=== PATIENT | female | born 1930 | race Caucasian/White ===

== ENCOUNTER 2016-09-27 10:19 | Emergency (ER) ==
[2016-09-27 10:23] VITALS: BP 138/69; TEMP 99.5; BMI 25.7
[2016-09-27 10:59] LABS: BASOPHILS # (AUTO) 0.1 K/uL (0-0.2); BASOPHILS % (AUTO) 0.4 % (0.0-3.0); EOSINOPHILS % (AUTO) 0.3 % (0.0-7.0); HEMATOCRIT 31.7 % (37.0-47.0); IMMATURE GRANULOCYTE % (AUTO) 0.4 % (0.0-5.0); LYMPHOCYTES # (AUTO) 0.8 K/uL (0.60-3.4); LYMPHOCYTES % (AUTO) 6.7 (10.0-50.0); MEAN CORPUSCULAR HGB CONC 31.5 (31.8-35.4); MEAN CORPUSCULAR VOLUME 85.7 fl (81.0-99.0); MONOCYTES # (AUTO) 1.1 K/uL (0.4-2.0); MONOCYTES % (AUTO) 9.9 (0-10); NEUTROPHILS # (AUTO) 9.4 K/ul (2.0-6.9); NEUTROPHILS % (AUTO) 82.3; PLATELET COUNT 228 10^3/uL (140-440); WHITE BLOOD COUNT 11.45 K/ul (4.6-10.2)
[2016-09-27 11:13] LABS: PARTIAL THROMBOPLASTIN TIME 27.9 SEC (23.9-40.0)
[2016-09-27 11:16] LABS: ALBUMIN 3.4 g/dL (3.4-5.0); ALBUMIN/GLOBULIN RATIO 0.77; ANION GAP 16.5; BILIRUBIN,TOTAL 0.53 mg/dL (0.00-1.20); CALCIUM 9.5 mg/dL (8.2-10.2); CREATININE 1.2 mg/dL (0.60-1.30); POTASSIUM 3.5 mmol/L (3.5-5.10); TOTAL PROTEIN 7.8 g/dL (5.8-8.1)
--- NOTE | 2016-09-27 12:22 | ED.PDOC ---
General ED Provider: Dr. JOYCELYN TAYLOR Chief Complaint: Nosebleed Stated Complaint: nosebleed Time Seen by Physician: 10:20 Mode of Arrival: Walk-In Information Source: Patient, Family Exam Limitations: No limitations Primary Care Provider: PASHA DOBSON Nursing and Triage Documentation Reviewed and Agree: Yes EENT Complaint Exam - Nasal Complaint/Exam Onset/Duration: epistaxis tody Symptoms Are: Resolved Initial Severity: Mild Current Severity: None Location: Right Character: Light bleeding Aggravating: Reports: None Alleviating: Reports: None Associated Signs and Symptoms: Denies: Nasal congestion, Bruising, Hematuria, Hematochezia, Sinus pain, Nasal discharge, Foreign body, Abnormal coags Nasal Surgical History: Reports: None Bleeding Present At: Right nostril Foreign Body Present: No Septal Hematoma: No Differential Diagnoses: Coagulopathy Review of Systems - Review Of Systems Constitutional: Reports: No symptoms Eyes: Reports: No symptoms Ears, Nose, Mouth, Throat: Reports: Epistaxis Respiratory: Reports: No symptoms Cardiac: Reports: No symptoms GI: Reports: No symptoms : Reports: No symptoms Musculoskeletal: Reports: No symptoms Skin: Reports: No symptoms Neurological: Reports: No symptoms Endocrine: Reports: No symptoms Hematologic/Lymphatic: Reports: No symptoms All Other Systems: Reviewed and Negative Past Medical History - Past Medical History Previously Healthy: No Endocrine: Reports: DM 2 Cardiovascular: Reports: Hypertension Respiratory: Reports: None Hematological: Reports: None Gastrointestinal: Reports: None Genitourinary: Reports: None Neuro/Psych: Reports: None Musculoskeletal: Reports: None Cancer: Reports: None Last Menstrual Period: n/a - Surgical History General Surgical History: Reports: Unknown - Family History Family History: Reports: Unknown - Social History Smoking Status: Never smoker Hx Substance Use: No Alcohol Screening: None Physical Exam - Physical Exam Appearance: Well-appearing, No pain distress, Well-nourished Eyes: BRIAN, EOMI, Conjunctiva clear ENT: Ears normal, Nose normal, Oropharynx normal Respiratory: Airway patent, Breath sounds clear, Breath sounds equal, Respirations nonlabored Cardiovascular: RRR, Pulses normal, No rub, No murmur GI/: Soft, Nontender, No masses, Bowel sounds normal, No Organomegaly Musculoskeletal: Normal strength, ROM intact, No edema, No calf tenderness Skin: Warm, Dry, Normal color Neurological: Sensation intact, Motor intact, Reflexes intact, Cranial nerves intact, Alert, Oriented Psychiatric: Affect appropriate, Mood appropriate Interpretation - Data Designer Rate: Normal Rhythm: Sinus Ectopy: None - EKG Interpretation Rate: Normal Rhythm: Sinus Ectopy: None (1st degree block) Critical Care Note - Critical Care Note Total Time (mins): 0 Course - Course Hematology/Chemistry: 09/27/16 10:47 09/27/16 10:47 Orders, Labs, Meds: Lab Review 09/27/16 10:47 WBC 11.45 H RBC 3.70 L Hgb 10.0 L Hct 31.7 L MCV 85.7 MCH 27.0 MCHC 31.5 L RDW Coeff of Fauzia 15.7 H Plt Count 228 Immature Gran % (Auto) 0.4 Neut % (Auto) 82.3 Lymph % (Auto) 6.7 L [place] % (Auto) 9.9 Eos % (Auto) 0.3 Baso % (Auto) 0.4 Immature Gran # (Auto) 0.1 Neut # 9.4 H Lymph # 0.8 [place] # 1.1 Eos # 0.0 Baso # 0.1 PT 11.0 INR 1.07 APTT 27.9 Sodium 135 L Potassium 3.5 Chloride 99 Carbon Dioxide 23 Anion Gap 16.5 BUN 12 Creatinine 1.20 Estimated GFR (MDRD) 42.00 BUN/Creatinine Ratio 10.00 Glucose 246 H Calcium 9.5 Total Bilirubin 0.53 AST 17 ALT 11 L Alkaline Phosphatase 82 Total Protein 7.8 Albumin 3.4 Globulin 4.4 Albumin/Globulin Ratio 0.77 Orders Category Date Time Status EKG-(ED ONLY) Stat CARDIO 09/27/16 10:34 Completed CBC W/ AUTO DIFF Stat LAB 09/27/16 10:47 Completed COMPREHENSIVE METABOLIC PANEL Stat LAB 09/27/16 10:47 Completed PARTIAL THROMBOPLASTIN TIME Stat LAB 09/27/16 10:47 Completed PT WITH INR Stat LAB 09/27/16 10:47 Completed Vital Signs: Temp Pulse Resp BP Pulse Ox 09/27/16 10:19 99.5 F 90 20 138/69 96 Departure - Departure Time of Disposition: 12:22 (while in the emergency dept no nosebleeds were noted ) Disposition: HOME SELF-CARE Discharge Problem: Epistaxis Uncontrolled diabetes mellitus Qualifiers: Diabetes mellitus type: other specified (including LORNE) Anemia Qualifiers: Anemia type: unspecified type Qualifier Code: (D64.9) Anemia, unspecified Instructions: Nosebleed (ED), Anemia (ED) Condition: Good Pt referred to PMD for follow-up: No Additional Instructions: Please call your Family Physician as soon as possible to schedule a follow-up appointment. your blood sugar is not well controlled please see your doctor as soon as possible Allergies/Adverse Reactions: Allergies codeine Adverse Reaction (Verified 09/27/16 10:27) Home Medications: Ambulatory Orders Amlodipine Besylate [Norvasc] 2.5 mg PO DAILY 10/24/13 Donepezil HCl [Aricept] 5 mg PO DAILY 10/24/13 Levetiracetam [Keppra] 500 mg PO BID 10/24/13 Quetiapine Fumarate 25 mg PO BEDTIME 04/05/15 Sitagliptin Phosphate [Januvia] 50 mg PO DAILY 04/05/15 Atorvastatin Calcium 40 mg PO BEDTIME 09/27/16 Captopril 6.25 mg PO TID 09/27/16 Docusate Sodium [Colace] 100 mg PO BID 09/27/16 Hydrocodone Bit/Acetaminophen [[place] 7.5-325] 1 each PO Q6HR 09/27/16 Memantine HCl [Namenda Xr] 28 mg PO DAILY 09/27/16 Metoprolol Tartrate [Lopressor] 12.5 mg PO DAILY 09/27/16 Mirtazapine [Remeron] 30 mg PO BEDTIME 09/27/16 Nitroglycerin [Nitrostat] 0.4 mg SL Q5MIN X 3 DOSES PRN 09/27/16 Ticagrelor [Brilinta] 90 mg PO BID 09/27/16 Tramadol HCl [Ultram] 50 mg PO TID 09/27/16
== END 2016-09-27 12:43 | disposition home or self-care (01) ==
LOC: ED 10:19
DX: R04.0 Epistaxis (principal); D64.9 Anemia, unspecified; E11.65 Type 2 diabetes mellitus with hyperglycemia; I10 Essential (primary) hypertension; Z79.899 Other long term (current) drug therapy
CPT/HCPCS: 36415; 80053; 85025; 85610; 85730; 93005; 93010; 99283

== ENCOUNTER 2016-12-26 16:53 | Emergency (ER) ==
[2016-12-26 17:05] VITALS: BP 162/96; BMI 22.3
--- NOTE | 2016-12-26 17:22 | ED.PDOC ---
General ED Provider: Dr. CARLEE JEONG Chief Complaint: Extremity Pain/Injury Stated Complaint: Woke up AM tightness in feet, legs. Headache, blurred vision , heaviness in chest now. Time Seen by Physician: 17:25 Mode of Arrival: Walk-In Information Source: Patient, Family Exam Limitations: Dementia Primary Care Provider: PASHA DOBSON Nursing and Triage Documentation Reviewed and Agree: Yes Review of Systems - Review Of Systems Constitutional: Reports: Chills, Fever, Malaise Eyes: Reports: Blurred vision Ears, Nose, Mouth, Throat: Reports: No symptoms Respiratory: Reports: No symptoms Musculoskeletal: Reports: Muscle pain (lower extremities) Neurological: Reports: Anxiety, Headache, Numbness All Other Systems: Reviewed and Negative Past Medical History - Past Medical History Previously Healthy: No Endocrine: Reports: DM 2 Cardiovascular: Reports: Hypertension Respiratory: Reports: None Hematological: Reports: None Gastrointestinal: Reports: None Genitourinary: Reports: None Neuro/Psych: Reports: None Musculoskeletal: Reports: None Cancer: Reports: None Last Menstrual Period: 1976 - Surgical History General Surgical History: Reports: Unknown - Family History Family History: Reports: Unknown - Social History Smoking Status: Never smoker Hx Substance Use: No Alcohol Screening: None - Immunizations Tetanus Shot up to Date: Yes Physical Exam - Physical Exam Appearance: Well-appearing Eyes: BRIAN, EOMI, Conjunctiva clear ENT: Ears normal, Nose normal Neck: Supple Respiratory: Airway patent, Breath sounds clear, Breath sounds equal Cardiovascular: RRR, Pulses normal GI/: Soft, Nontender, No masses, Bowel sounds normal Musculoskeletal: Normal strength, ROM intact, No edema Skin: Warm, Dry, Normal color Neurological: Sensation intact, Motor intact Interpretation - Radiology Interpretation Radiology Interpretation By: Radiologist Radiology Results: Negative Exam Interpreted: CT Scan (No intracraneal bleed; no mass effect) - EKG Interpretation Time of EKG #1: 17:40 Rate: Normal Rhythm: Sinus Ectopy: None Interpretation: No apparent acute changes Critical Care Note - Critical Care Note Total Time (mins): 20 Course - Course Hematology/Chemistry: 12/26/16 17:40 12/26/16 17:40 Orders, Labs, Meds: Lab Review 12/26/16 17:40 WBC 7.98 RBC 3.54 L Hgb 9.9 L Hct 31.3 L MCV 88.4 MCH 28.0 MCHC 31.6 L RDW Coeff of Fauzia 15.8 H Plt Count 257 Immature Gran % (Auto) 0.5 Neut % (Auto) 67.9 Lymph % (Auto) 19.3 [place] % (Auto) 8.5 Eos % (Auto) 2.9 Baso % (Auto) 0.9 Immature Gran # (Auto) 0.0 Neut # 5.4 Lymph # 1.5 [place] # 0.7 Eos # 0.2 Baso # 0.1 Sodium 137 Potassium 4.2 Chloride 104 Carbon Dioxide 21 L Anion Gap 16.2 BUN 20 H Creatinine 1.61 H Estimated GFR (MDRD) 30.00 BUN/Creatinine Ratio 12.42 Glucose 159 H Calcium 9.6 Total Bilirubin 0.36 AST 19 ALT 12 Alkaline Phosphatase 64 Troponin I < 0.0100 Total Protein 7.7 Albumin 3.5 Globulin 4.2 Albumin/Globulin Ratio 0.83 Orders Category Date Time Status EKG-(IP & OP ONLY) Stat CARDIO 12/26/16 17:32 Completed CBC W/ AUTO DIFF Stat LAB 12/26/16 17:40 Completed CMP [COMPREHENSIVE METABOLIC PANEL] Stat LAB 12/26/16 17:40 Completed TROPONIN I Stat LAB 12/26/16 17:[address] HEAD W/O CONTRAST Stat RADS 12/26/16 17:58 Completed Vital Signs: Temp Pulse Resp BP Pulse Ox 12/26/16 18:58 98.3 F 12/26/16 16:55 98.7 F 71 20 162/96 H 94 L Departure - Departure Time of Disposition: 19:10 Disposition: HOME SELF-CARE Discharge Problem: Viral syndrome Instructions: Viral Pneumonia (ED), Viral Syndrome (ED) Condition: Stable Pt referred to PMD for follow-up: Yes (Call for appointment) Additional Instructions: Tylenol for discomfort or fever; keep well hydrated. Return to ER if worsening or follow up with primary care. Allergies/Adverse Reactions: Allergies codeine Adverse Reaction (Verified 09/27/16 10:27) Home Medications: Ambulatory Orders Amlodipine Besylate [Norvasc] 2.5 mg PO DAILY 10/24/13 Levetiracetam [Keppra] 500 mg PO BID 10/24/13 Quetiapine Fumarate 25 mg PO BEDTIME 04/05/15 Sitagliptin Phosphate [Januvia] 50 mg PO DAILY 04/05/15 Atorvastatin Calcium 40 mg PO BEDTIME 09/27/16 Captopril 6.25 mg PO TID 09/27/16 Docusate Sodium [Colace] 100 mg PO BID 09/27/16 Hydrocodone Bit/Acetaminophen [[place] 7.5-325] 1 each PO Q6HR 09/27/16 Memantine HCl [Namenda Xr] 28 mg PO DAILY 09/27/16 Metoprolol Tartrate [Lopressor] 12.5 mg PO DAILY 09/27/16 Mirtazapine [Remeron] 30 mg PO BEDTIME 09/27/16 Nitroglycerin [Nitrostat] 0.4 mg SL Q5MIN X 3 DOSES PRN 09/27/16 Ticagrelor [Brilinta] 90 mg PO BID 09/27/16 Tramadol HCl [Ultram] 50 mg PO TID 09/27/16 Transfer Form Completed: Yes Disposition Discussed With: Family
[2016-12-26 17:43] LABS: BASOPHILS # (AUTO) 0.1 K/uL (0-0.2); BASOPHILS % (AUTO) 0.9 % (0.0-3.0); EOSINOPHILS # (AUTO) 0.2 K/ul (0.0-0.7); EOSINOPHILS % (AUTO) 2.9 % (0.0-7.0); HEMATOCRIT 31.3 % (37.0-47.0); HEMOGLOBIN 9.9 g/dl (12.0-16.0); IMMATURE GRANULOCYTE % (AUTO) 0.5 % (0.0-5.0); LYMPHOCYTES # (AUTO) 1.5 K/uL (0.60-3.4); LYMPHOCYTES % (AUTO) 19.3 (10.0-50.0); MEAN CORPUSCULAR HGB CONC 31.6 (31.8-35.4); MEAN CORPUSCULAR VOLUME 88.4 fl (81.0-99.0); MONOCYTES # (AUTO) 0.7 K/uL (0.4-2.0); MONOCYTES % (AUTO) 8.5 (0-10); NEUTROPHILS # (AUTO) 5.4 K/ul (2.0-6.9); NEUTROPHILS % (AUTO) 67.9; PLATELET COUNT 257 10^3/uL (140-440); RED BLOOD COUNT 3.54 10^6/ul (4.20-5.40); WHITE BLOOD COUNT 7.98 K/ul (4.6-10.2)
[2016-12-26 18:09] LABS: ALANINE AMINOTRANSFERASE 12 U/L (12-78); ALBUMIN 3.5 g/dL (3.4-5.0); ALBUMIN/GLOBULIN RATIO 0.83; ALKALINE PHOSPHATASE 64 U/L (53-141); ANION GAP 16.2; ASPARTATE AMINO TRANSFERASE 19 U/L (15-37); BILIRUBIN,TOTAL 0.36 mg/dL (0.00-1.20); BLOOD UREA NITROGEN 20 mg/dL (7-18); BUN/CREATININE RATIO 12.42; CALCIUM 9.6 mg/dL (8.2-10.2); CARBON DIOXIDE 21 mmol/L (23-31); CHLORIDE 104 mmol/L (98-107); CREATININE 1.61 mg/dL (0.60-1.30); GLUCOSE 159 mg/dL (82-115); POTASSIUM 4.2 mmol/L (3.5-5.10); SODIUM 137 mmol/L (136-145); TOTAL PROTEIN 7.7 g/dL (5.8-8.1)
--- NOTE | 2016-12-26 18:33 | CT ---
EXAM: CT scan of head without contrast. HISTORY: Headache, blurred vision2 COMPARISON: None. TECHNIQUE: Axial scans acquired at 5 mm slice thicknesses. FINDINGS: There is no intra or extra-axial hemorrhage seen. No mass or shift of midline structures is seen. There is some cortical atrophy involving the frontal and parietal lobes. There is decrea sed attenuation seen in the periventricular matter consistent with chronic microvascular ischemic ch anges. Left basal ganglia calcification small 0.3 cm area decreased density left external capsule pr obable old infarct. No acute large vessel cerebrovascular accident is seen. Ventricles appear esperanza l considering degree of atrophy. There are no air-fluid levels visualized sinuses and no opacificat ion mastoid air cells is seen. IMPRESSION: 1. No acute intracranial finding is seen. 2. No intracranial hemorrhage or large vessel cerebrovascular accident identified. Vertebral and ca vernous internal carotid atherosclerosis 3. Age appropriate cortical atrophy is seen as well as some chronic white matter ischemic changes.
[2016-12-26 18:58] VITALS: TEMP 98.3
== END 2016-12-26 19:23 | disposition home or self-care (01) ==
LOC: ED 16:53
DX: B34.9 Viral infection, unspecified (principal); E11.9 Type 2 diabetes mellitus without complications; I10 Essential (primary) hypertension; Z79.899 Other long term (current) drug therapy
CPT/HCPCS: 36415; 80053; 84484; 85025; 93005; 93010; 99283

== ENCOUNTER 2017-03-13 16:01 | Outpatient (CLI) ==
[2017-03-13 16:15] LABS: BILIRUBIN,URINE Negative (NEGATIVE); KETONES,URINE Negative (NEGATIVE); LEUKOCYTE ESTERASE ,URINE Trace (NEGATIVE); NITRITE,URINE Negative (NEGATIVE); PROTEIN,URINE Negative (NEGATIVE); URINE, BLOOD Negative (NEGATIVE)
[2017-03-13 16:22] LABS: ADD URINE MICROSCOPIC YES
== END 2017-03-13 16:02 | disposition home or self-care (01) ==
LOC: NONPT 16:01
PROVIDERS: ATTEND Family Medicine
DX: N39.0 Urinary tract infection, site not specified (principal); Z16.12 Extended spectrum beta lactamase (ESBL) resistance
CPT/HCPCS: 81001; 87086

== ENCOUNTER 2017-11-05 12:25 | Outpatient (CLI) | payer OTHER | END 2017-11-05 12:26 | disposition short-term general hospital (02) | LOC: AMBL 12:25 | PROVIDERS: ATTEND Internal Medicine | DX: S09.90XA Unspecified injury of head, initial encounter (principal); M54.2 Cervicalgia; R04.0 Epistaxis; M25.511 Pain in right shoulder; M25.512 Pain in left shoulder; I10 Essential (primary) hypertension; F03.90 Unspecified dementia, unspecified severity, without behavioral disturbance, psychotic disturbance, mood disturbance, and anxiety; W19.XXXA Unspecified fall, initial encounter; Y92.838 Other recreation area as the place of occurrence of the external cause ==

== ENCOUNTER 2018-01-01 12:34 | Outpatient (CLI) ==
--- NOTE | 2018-01-01 13:36 | DI ---
EXAM: Four views of the bilateral sternoclavicular joints. History: Bony mass of the clavicles. Comparison: Chest radiograph 11/11/2013 Findings: Atherosclerotic vascular calcifications. Left lower lobe atelectasis or infiltrate. No a cute fracture or dislocation. Osteopenia. Moderate degenerative changes of bilateral glenohumeral dayanara ints with prominent osteophytes. Bilateral AC joints are intact. No suspicious osseous lesions. The bilateral sternoclavicular joints are grossly unremarkable but evaluation is difficult due to overla pping structures. Impression: 1. No acute osseous abnormality. 2. Intact bilateral AC joints. 3. Moderate arthritis of bilateral glenohumeral joints. 4. Left lower lobe subsegmental atelectasis or pneumonia. 5. The bilateral sternoclavicular joints are grossly unremarkable. If symptoms persist, recommend c orrelation with CT.
== END 2018-01-01 12:35 | disposition home or self-care (01) ==
LOC: RAD 12:34
PROVIDERS: ATTEND Family Medicine
DX: M89.9 Disorder of bone, unspecified (principal)

== ENCOUNTER 2018-01-29 12:46 | Emergency (ER) | payer OTHER ==
[2018-01-29 13:00] VITALS: BP 171/81; TEMP 98.6; BMI 25.0
--- NOTE | 2018-01-29 14:37 | ED.PDOC ---
General ED Provider: Dr. PASHA DICKINSON Chief Complaint: Fall Stated Complaint: Daughter states her mother lives with her and fell in the bedroom, against her bed/dresser sustained injury to her lt lat chest and lt breast region, lt hand/. As well states she has been dyspneic howerver denies any symptoms at present. Time Seen by Physician: 14:00 Mode of Arrival: Walk-In Information Source: Patient, Family Primary Care Provider: PASHA DOBSON Nursing and Triage Documentation Reviewed and Agree: Yes Does patient meet sepsis criteria?: No System Inflammatory Response Syndrome: Not Applicable Sepsis Protocol: For patient's 13 years and over: Temp is 96.8 and below OR 101 and greater Pulse >90 BPM Resp >20/minute Acutely Altered Mental Status Are patient's symptoms suggestive of a new infection, such as: -Pneumonia -Skin, Soft Tissue -Endocarditis -UTI -Bone, Joint Infection -Implantable Device -Acute Abdominal Infection -Wound Infection -Meningitis -Blood Stream Catheter Infection -Unknown Review of Systems - Review Of Systems Constitutional: Reports: No symptoms, Malaise, Weakness Eyes: Reports: No symptoms Ears, Nose, Mouth, Throat: Reports: No symptoms Respiratory: Reports: No symptoms Cardiac: Reports: No symptoms GI: Reports: No symptoms : Reports: No symptoms Musculoskeletal: Reports: Back pain Skin: Reports: No symptoms Neurological: Reports: No symptoms, Other (memory loss) Endocrine: Reports: No symptoms Hematologic/Lymphatic: Reports: No symptoms All Other Systems: Reviewed and Negative Past Medical History - Past Medical History Previously Healthy: No Endocrine: Reports: DM 2 Cardiovascular: Reports: Hypertension Respiratory: Reports: None Hematological: Reports: None Gastrointestinal: Reports: None Genitourinary: Reports: None Neuro/Psych: Reports: None Musculoskeletal: Reports: None Cancer: Reports: None Last Menstrual Period: unknown - Surgical History General Surgical History: Reports: Unknown - Family History Family History: Reports: Unknown - Social History Smoking Status: Never smoker Hx Substance Use: No Alcohol Screening: None Physical Exam - Physical Exam Appearance: Well-appearing, No pain distress Ill-appearing: None Pain Distress: None Eyes: BRIAN, EOMI, Conjunctiva clear ENT: Ears normal, Nose normal, Oropharynx normal Neck: Supple Respiratory: Airway patent, Breath sounds clear, Breath sounds equal, Respirations nonlabored Cardiovascular: RRR, Pulses normal, No rub, No murmur GI/: Soft, Nontender, No masses, Bowel sounds normal, No Organomegaly Musculoskeletal: Normal strength (tenderness lt lat chest wall.no crepitance) Interpretation - Radiology Interpretation Radiology Interpretation By: Radiologist Radiology Results: No acute changes Exam Interpreted: Other (chest wall, rib series) Critical Care Note - Critical Care Note Total Time (mins): 0 Course - Course Hematology/Chemistry: 01/29/18 14:55 01/29/18 14:55 Orders, Labs, Meds: Lab Review 01/29/18 01/29/18 14:55 14:55 WBC 9.12 RBC 3.66 L Hgb 11.1 L Hct 33.1 L MCV 90.4 MCH 30.3 MCHC 33.5 RDW Coeff of Fauzia 13.1 Plt Count 241 Immature Gran % (Auto) 0.3 Neut % (Auto) 68.2 Lymph % (Auto) 17.0 [place] % (Auto) 9.1 Eos % (Auto) 4.6 Baso % (Auto) 0.8 Immature Gran # (Auto) 0.0 Neut # (Auto) 6.2 Lymph # (Auto) 1.6 [place] # (Auto) 0.8 Eos # (Auto) 0.4 Baso # (Auto) 0.1 Sodium 129 L Potassium 4.4 Chloride 94 L Carbon Dioxide 26 Anion Gap 13.4 BUN 15 Creatinine 1.61 H Estimated GFR (MDRD) 30.00 BUN/Creatinine Ratio 9.31 Glucose 166 H Calcium 9.5 Total Bilirubin 0.3 AST 14 L ALT 9 L Alkaline Phosphatase 57 Total Protein 7.9 Albumin 3.6 Globulin 4.3 Albumin/Globulin Ratio 0.84 Orders Category Date Time Status CBC W/ AUTO DIFF Stat LAB 01/29/18 14:55 Completed CMP [COMPREHENSIVE METABOLIC PANEL] Stat LAB 01/29/18 14:55 Completed UA [URINALYSIS C & S IF INDICATED] Stat LAB 01/29/18 14:42 Uncollected CHEST, 2 VIEWS PA & LAT Stat RADS 01/29/18 14:38 Completed HAND, LEFT 3 VIEWS Stat RADS 01/29/18 14:40 Completed RIBS, BILATERAL MIN 3V Stat RADS 01/29/18 14:38 Completed Vital Signs: Temp Pulse Resp BP Pulse Ox 01/29/18 12:47 98.6 F 88 20 171/81 H 94 L Departure - Departure Time of Disposition: 16:20 Disposition: HOME SELF-CARE Discharge Problem: Chest wall contusion, Hyponatremia, Dementia Instructions: Chest Pain (ED), Hyponatremia (ED) Condition: Good Pt referred to PMD for follow-up: Yes IPMP verified?: Yes Additional Instructions: routine analgesics for pain control as needed. Avoid excess water ingestion Allergies/Adverse Reactions: Allergies codeine Adverse Reaction (Verified 01/29/18 13:00) Home Medications: Ambulatory Orders Amlodipine Besylate [Norvasc] 2.5 mg PO DAILY 10/24/13 Levetiracetam [Keppra] 500 mg PO BID 10/24/13 Sitagliptin Phosphate [Januvia] 50 mg PO DAILY 04/05/15 Atorvastatin Calcium 40 mg PO BEDTIME 09/27/16 Metoprolol Tartrate [Lopressor] 12.5 mg PO DAILY 09/27/16 Mirtazapine [Remeron] 30 mg PO BEDTIME 09/27/16 Nitroglycerin [Nitrostat] 0.4 mg SL Q5MIN X 3 DOSES PRN 09/27/16 Furosemide 60 mg PO DAILY 01/29/18 Meclizine HCl 12.5 mg PO TID PRN 01/29/18 Montelukast Sodium [Singulair] 10 mg PO DAILY 01/29/18 Polyethylene Glycol 3350 [Miralax] 17 gm PO DAILY PRN 01/29/18 Pramipexole Di-HCl [Mirapex] 0.5 mg PO BEDTIME 01/29/18 Quetiapine Fumarate [Seroquel] 25 mg PO BEDTIME 01/29/18 Disposition Discussed With: Patient, Family
--- NOTE | 2018-01-29 15:42 | DI ---
EXAM: PA and lateral views of the chest HISTORY: Fall COMPARISON: Chest x-ray 11/11/2013 FINDINGS: The cardiomediastinal silhouette is unchanged. Lungs are hyperinflated. There are mild i nterstitial opacities throughout both lungs. There is no pneumothorax or pleural effusion. There is no consolidation, nodule or mass. The osseous structures demonstrates degenerative disease of the s pine. IMPRESSION: 1. No acute consolidation or cardiopulmonary process. 2. Lungs are hyperinflated with interstitial opacities consistent with chronic obstructive pulmonary disease versus interstitial lung disease.
--- NOTE | 2018-01-29 15:42 | DI ---
Exam: Four views of the bilateral ribs. Comparison: Chest x-ray performed 01/29. Reason for exam: Fall. FINDINGS: Parenchymal changes are seen consistent with chronic lung disease. There is blunting of t he left costophrenic angle. Degenerative disease is seen in both shoulders and the thoracic spine. No displaced fractures are seen. Impression: No displaced rib fractures are seen. Blunting of the left costophrenic angle with moderate to marked degenerative disease
--- NOTE | 2018-01-29 15:46 | DI ---
Exam: Three views of the left hand. Comparison: None available. Reason for exam: Injury and pain. FINDINGS: No obvious fracture. Moderate to marked degenerative disease is seen throughout the left w rist and left hand with joint space loss and osteophyte formation. There is a moderate amount of sof t tissue swelling seen adjacent to the joint spaces. Impression: 1. No obvious fracture is seen in the left hand. 2. Moderate to severe degenerative disease is seen throughout the wrist and phalanges.
== END 2018-01-29 16:41 | disposition home or self-care (01) ==
LOC: ED 12:46
DX: S20.212A Contusion of left front wall of thorax, initial encounter (principal); S69.92XA Unspecified injury of left wrist, hand and finger(s), initial encounter; E87.1 Hypo-osmolality and hyponatremia; F03.90 Unspecified dementia, unspecified severity, without behavioral disturbance, psychotic disturbance, mood disturbance, and anxiety; W19.XXXA Unspecified fall, initial encounter; Y92.003 Bedroom of unspecified non-institutional (private) residence as the place of occurrence of the external cause
CPT/HCPCS: 36415; 80053; 85025; 99283

== ENCOUNTER 2018-03-19 12:30 | Outpatient (CLI) | payer OTHER ==
--- NOTE | 2018-03-19 13:07 | DI ---
EXAM: Two views of the chest. History: Cough and chest trauma. Comparison: Chest radiograph 01/29/2018 Findings: Heart is mildly enlarged. Diffuse bronchial wall thickening. There is a new nodular dens ity within the right lateral midlung. Left lower lobe infiltrate. Question small left pleural effus ion. No pneumothorax. No acute osseous abnormalities. Atherosclerotic vascular calcifications. Impression: 1. New nodular density within the right lateral lung. Recommend further evaluation with chest CT. 2. Mild cardiomegaly. 3. Diffuse bronchial wall thickening. 4. Probable left lower lobe infiltrate and question small left pleural effusion.
--- NOTE | 2018-03-19 13:13 | DI ---
EXAM: Four views of the cervical spine. History: Cervical neck trauma. Findings: Only through C5 is seen on the lateral view. Seen only on the lateral view there is a reuben ency seen traversing the odontoid. Minimal 2 mm anterolisthesis of C4 on C5. Atherosclerotic vascul ar calcifications. Prominent anterior osteophyte at C5-6 is only partially visualized. No preverte bral soft tissue swelling. Predental space is not widened. Mild to moderate disc space narrowing bu t C5-6 and C6-7 are not fully visualized. Multilevel bilateral uncovertebral and facet hypertrophy. Impression: 1. Unexpected finding: Question nondisplaced fracture of the odontoid versus pseudoarthrosis. Adam mmend further evaluation with CT cervical spine. 2. Degenerative changes.
--- NOTE | 2018-03-19 13:35 | DI ---
EXAM: Three views of the right shoulder. History: Right shoulder trauma. Findings: Osteopenia. No acute fracture or dislocation. Moderate to severe narrowing of the right glenohumeral joint with marginal sclerosis and osteophyte formation. Impression: 1. No acute osseous abnormality. 2. 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
[2018-03-19 18:40] VITALS: BMI 25.9
== END 2018-03-19 12:31 | disposition home or self-care (01) ==
LOC: RAD 12:30
PROVIDERS: ATTEND Family Medicine
DX: R05 Cough (principal); R07.9 Chest pain, unspecified; M25.511 Pain in right shoulder; M54.2 Cervicalgia; W19.XXXA Unspecified fall, initial encounter

== ENCOUNTER 2018-03-19 14:27 | Inpatient (IN) | payer OTHER ==
--- NOTE | 2018-03-19 14:45 | ED.PDOC ---
General ED Provider: Dr. PASHA DICKINSON Chief Complaint: Neck Injury Stated Complaint: Has had recent fall and underwent preliminary work up revealing questionable cervical odontoid fracture. Sent in for CT scan of Cervical spine. In additon has had cough and congestion. Chest Xray revealed LLL infiltrate and Lt Pleural effusion . New nodualr density in Rt Lung. Time Seen by Physician: 14:40 Mode of Arrival: Walk-In Information Source: Patient Exam Limitations: No limitations Primary Care Provider: PASHA DOBSON Nursing and Triage Documentation Reviewed and Agree: Yes Does patient meet sepsis criteria?: No System Inflammatory Response Syndrome: Not Applicable Sepsis Protocol: For patient's 13 years and over: Temp is 96.8 and below OR 101 and greater Pulse >90 BPM Resp >20/minute Acutely Altered Mental Status Are patient's symptoms suggestive of a new infection, such as: -Pneumonia -Skin, Soft Tissue -Endocarditis -UTI -Bone, Joint Infection -Implantable Device -Acute Abdominal Infection -Wound Infection -Meningitis -Blood Stream Catheter Infection -Unknown Musculoskeletal Complaint Exam - Neck Pain Complaint/Exam Mechanism of Injury: Reports: Trauma Symptoms Are: Still present Timing: Intermittent Episodes Lasting: Hours Initial Severity: Moderate Current Severity: Mild Location: Reports: Discrete Character: Reports: Aching Aggravating: Reports: Position Alleviating: Reports: Position Associated Signs and Symptoms: Denies: Swelling, Redness, Bruising, Fever, Nuchal rigidity, Weakness, Headache, Paresthesia Meningitis Risk Factors: Reports: None Cervical Spine Injury Risk Factors: Reports: None Related Surgical History: Reports: None Carotid Bruit Present: No Pain on Passive Flexion: No Positive Kernig's Sign: No ROM Limited In: Present: Flexion, Right, Left, Rotation Tenderness: Present: Midline Review of Systems - Review Of Systems Constitutional: Reports: No symptoms Eyes: Reports: No symptoms Ears, Nose, Mouth, Throat: Reports: No symptoms Respiratory: Reports: No symptoms, Cough, Wheezing Cardiac: Reports: No symptoms GI: Reports: No symptoms : Reports: No symptoms Musculoskeletal: Reports: No symptoms, Neck pain Skin: Reports: No symptoms Neurological: Reports: No symptoms Endocrine: Reports: No symptoms Hematologic/Lymphatic: Reports: No symptoms All Other Systems: Reviewed and Negative Past Medical History - Past Medical History Previously Healthy: No Endocrine: Reports: DM 2 Cardiovascular: Reports: Hypertension Respiratory: Reports: None Hematological: Reports: None Gastrointestinal: Reports: None Genitourinary: Reports: None Neuro/Psych: Reports: None Musculoskeletal: Reports: None Cancer: Reports: None Last Menstrual Period: N/A - Surgical History General Surgical History: Reports: Unknown - Family History Family History: Reports: Unknown - Social History Smoking Status: Never smoker Hx Substance Use: No Alcohol Screening: None Physical Exam - Physical Exam Appearance: Well-appearing, No pain distress, Thin Ill-appearing: Mild Pain Distress: None Eyes: BRIAN, EOMI, Conjunctiva clear ENT: Ears normal, Nose normal, Oropharynx normal Neck: Supple Critical Care Note - Critical Care Note Total Time (mins): 30 Course - Course Hematology/Chemistry: 03/19/18 16:04 03/19/18 16:04 Orders, Labs, Meds: Orders Category Date Time Status EKG-(ED ONLY) Stat CARDIO 03/19/18 15:34 Completed IV [ED IV/MEDIPORT/POWERPORT] .ONCE EMERGENCY 03/19/18 15:34 Active BLOOD CULTURE (ED ONLY) Stat LAB 03/19/18 16:04 Received CBC W/ AUTO DIFF Stat LAB 03/19/18 16:04 Completed CMP [COMPREHENSIVE METABOLIC PANEL] Stat LAB 03/19/18 16:04 Completed LACTIC ACID Stat LAB 03/19/18 16:04 Completed PROCALCITONIN Stat LAB 03/19/18 16:04 Completed SPUTUM CULTURE Stat LAB 03/19/18 15:34 Uncollected UA [URINALYSIS C & S IF INDICATED] Stat LAB 03/19/18 15:34 Uncollected 0.9 % Sodium Chloride [Saline Flush] MEDS 03/19/18 15:33 Active 1 syr IVF PRN PRN Sodium Chloride 0.9% [Sodium Chloride] 1,000 ml MEDS 03/19/18 15:35 Active IV 125 mls/hr CT CERVICAL SPINE W/O CONTRAST Stat RADS 03/19/18 14:44 Completed Medications Generic Name Dose Route Start Last Admin Trade Name Freq PRN Reason Stop Dose Admin Acetaminophen 650 mg 03/19/18 17:11 Tylenol PO Q4H PRN Fever >101 Albuterol/Ipratropium 1 vial 03/19/18 17:11 Duoneb NEB RTQ6H PRN Wheezing Enoxaparin Sodium 30 mg 03/19/18 17:30 Lovenox SUBCUT DAILY JO ANN Sodium Chloride 1,000 mls @ 125 mls/hr 08/16/18 15:35 03/19/18 16:02 Sodium Chloride IV 03/19/18 23:34 125 mls/hr .Q8H STA Administration Sodium Chloride 1,000 mls @ 75 mls/hr 03/19/18 17:30 Sodium Chloride IV .[id number] JO ANN Vancomycin HCl 1 gm/ Sodium 250 mls @ 125 mls/hr 03/19/18 21:00 Chloride IV Q12HR JO ANN Ondansetron HCl 4 mg 03/19/18 17:11 Zofran 4 Mg/2 Ml IVP Q6H PRN nausea and vomiting Sodium Chloride 1 syr 03/19/18 15:33 03/19/18 16:02 Saline Flush IVF 1 syr PRN PRN Administration To flush IV Discontinued Medications Generic Name Dose Route Start Last Admin Trade Name Freq PRN Reason Stop Dose Admin Ceftriaxone Sodium 1 gm/ 50 mls @ 75 mls/hr 03/19/18 16:36 03/19/18 16:51 Sodium Chloride IV 03/19/18 17:15 75 mls/hr ONCE STA Administration Vital Signs: Temp Pulse Resp BP Pulse Ox 03/19/18 14:27 98.2 F 65 20 125/77 94 L Departure - Departure Time of Disposition: 17:25 Disposition: ADMITTED INPATIENT Discharge Problem: Pneumonia Condition: Fair Pt referred to PMD for follow-up: Yes (1 week ) IPMP verified?: No Allergies/Adverse Reactions: Allergies codeine Adverse Reaction (Verified 03/19/18 14:33) memantine [From Namenda] Adverse Reaction (Verified 03/19/18 15:12) Home Medications: Ambulatory Orders Amlodipine Besylate [Norvasc] 2.5 mg PO DAILY 10/24/13 Levetiracetam [Keppra] 500 mg PO BID 10/24/13 Sitagliptin Phosphate [Januvia] 50 mg PO DAILY 04/05/15 Atorvastatin Calcium 40 mg PO BEDTIME 09/27/16 Metoprolol Tartrate [Lopressor] 12.5 mg PO DAILY 09/27/16 Mirtazapine [Remeron] 30 mg PO BEDTIME 09/27/16 Nitroglycerin [Nitrostat] 0.4 mg SL Q5MIN X 3 DOSES PRN 09/27/16 Furosemide 60 mg PO DAILY 01/29/18 Meclizine HCl 12.5 mg PO TID PRN 01/29/18 Montelukast Sodium [Singulair] 10 mg PO DAILY 01/29/18 Pramipexole Di-HCl [Mirapex] 0.5 mg PO BEDTIME 01/29/18 Quetiapine Fumarate [Seroquel] 25 mg PO BEDTIME 01/29/18 Lorazepam [Ativan] 0.5 mg PO DAILY 03/19/18 Ranolazine [Ranexa] 500 mg PO DAILY 03/19/18 Tramadol HCl [Ultram] 50 mg PO DAILY 03/19/18 Disposition Discussed With: Patient, Family
--- NOTE | 2018-03-19 15:27 | CT ---
EXAM: CT of the cervical spine without contrast History: Abnormal cervical spine radiograph, neck trauma. Comparison: Cervical spine radiograph 03/19/2018 Technique: Multiplanar CT images through the cervical spine were obtained without the administration of IV contrast Findings: The visualized upper lungs are free of consolidation. The visualized airway remains paten t. There is mucosal thickening of the sphenoid sinuses. Osteopenia. No acute fracture or subluxation of the cervical spine. No prevertebral soft tissue swe lling. Predental space is not widened. Severe disc space narrowing at C5-6. Large flowing anterior osteophytes seen within the lower cervical spine and upper thoracic spine. Moderate to severe degen erate changes of the left C1-C2 articulation. Bony spinal canal is not significantly compromised. M oderate to severe multilevel bilateral bony neural foraminal narrowing secondary to uncovertebral and facet hypertrophy. Degenerative changes of the bilateral temporal mandibular joints Impression: No acute osseous abnormality of the cervical spine. Degenerative changes.
[2018-03-19] MEDS ORDERED: SODIUM CHLORIDE 1,000 ML IV STA (15:35)
[2018-03-19] MEDS ORDERED: ROCEPHIN 1 GM in SODIUM CHLORIDE 50 ML IV STA (16:36)
[2018-03-19] MEDS ORDERED: ROCEPHIN ONE (16:40)
[2018-03-19] MEDS ORDERED: TYLENOL PO PRN (17:11)
[2018-03-19] MEDS ORDERED: DUONEB NEB PRN (17:11)
[2018-03-19] MEDS ORDERED: ZOFRAN 4 MG/2 ML IVP PRN (17:11)
[2018-03-19] MEDS ORDERED: SOLU-MEDROL 125 MG 125 MG in SODIUM CHLORIDE 50 ML IV ONE (17:21)
[2018-03-19 18:40] VITALS: BMI 25.9
[2018-03-19] MEDS ORDERED: SOLU-MEDROL 125 MG ONE (18:45)
[2018-03-19] MEDS: LOVENOX SUBCUT SCH (18:51)
[2018-03-19] MEDS ORDERED: SOLU-MEDROL 125 MG IVP STA (18:53)
[2018-03-19] MEDS ORDERED: TESSALON PERLES PO PRN (19:24)
[2018-03-19] MEDS ORDERED: ANTIVERT PO PRN (19:24)
[2018-03-19] MEDS ORDERED: MIRALAX PO PRN (19:25)
[2018-03-19] MEDS ORDERED: NITROSTAT SL PRN (19:25)
[2018-03-19] MEDS: VANCOMYCIN 1 GM in SODIUM CHLORIDE 250 ML IV SCH (20:49)
[2018-03-19] MEDS: SEROQUEL PO SCH (20:51)
[2018-03-19] MEDS: REMERON PO SCH (20:51)
[2018-03-19] MEDS: KEPPRA PO SCH (20:51)
[2018-03-19] MEDS ORDERED: PRAMIPEXOLE DI HCL 0.5 MG PO SCH (21:00)
[2018-03-20] MEDS ORDERED: NON-FORMULARY MEDICATION (Sitagliptin Phosphate [Januvia] 50 MG) PO SCH (09:00)
[2018-03-20] MEDS ORDERED: NON-FORMULARY MEDICATION (Atorvastatin Calcium [Atorvastatin Calcium] 40 MG) PO SCH (09:00)
[2018-03-20] MEDS: JANUVIA PO SCH (10:05)
[2018-03-20] MEDS: KEPPRA PO SCH ×2 (10:05→20:26)
[2018-03-20] MEDS: LIPITOR PO SCH (10:05)
[2018-03-20] MEDS: LASIX TAB PO SCH (10:07)
[2018-03-20] MEDS: NORVASC PO SCH (10:07)
[2018-03-20] MEDS: LOPRESSOR PO SCH (10:07)
[2018-03-20] MEDS: SODIUM CHLORIDE 1,000 ML IV SCH ×3 (10:07→13:13)
[2018-03-20] MEDS: RANEXA PO SCH (10:07)
[2018-03-20] MEDS: LOVENOX SUBCUT SCH (10:08)
[2018-03-20] MEDS: ULTRAM PO SCH (10:08)
[2018-03-20] MEDS: VANCOMYCIN 1 GM in SODIUM CHLORIDE 250 ML IV SCH ×2 (10:49→20:25)
[2018-03-20] MEDS: ROCEPHIN 1 GM in SODIUM CHLORIDE 50 ML IV SCH (13:13)
[2018-03-20] MEDS: HUMULIN R SUBCUT PRN (17:11)
[2018-03-20] MEDS: SEROQUEL PO SCH (20:25)
[2018-03-20] MEDS: REMERON PO SCH (20:25)
[2018-03-20] MEDS: MIRAPEX PO SCH (20:25)
[2018-03-20] MEDS ORDERED: VANCOMYCIN 500 MG in SODIUM CHLORIDE 100 ML IV SCH (21:00)
[2018-03-21] MEDS: HUMULIN R SUBCUT PRN ×3 (01:30→22:20)
[2018-03-21] MEDS: LASIX TAB PO SCH (06:24)
[2018-03-21] MEDS: RANEXA PO SCH (08:50)
[2018-03-21] MEDS: JANUVIA PO SCH (08:51)
[2018-03-21] MEDS: KEPPRA PO SCH ×2 (08:51→20:41)
[2018-03-21] MEDS: NORVASC PO SCH (08:51)
[2018-03-21] MEDS: ULTRAM PO SCH (08:51)
[2018-03-21] MEDS: LOPRESSOR PO SCH (08:51)
[2018-03-21] MEDS: LIPITOR PO SCH (08:51)
[2018-03-21] MEDS: LOVENOX SUBCUT SCH (08:52)
[2018-03-21] MEDS: ROCEPHIN 1 GM in SODIUM CHLORIDE 50 ML IV SCH (11:10)
[2018-03-21] MEDS: SODIUM CHLORIDE 1,000 ML IV SCH (13:12)
[2018-03-21] MEDS: VANCOMYCIN 1 GM in SODIUM CHLORIDE 250 ML IV SCH (20:24)
[2018-03-21] MEDS: MIRAPEX PO SCH (20:40)
[2018-03-21] MEDS: REMERON PO SCH (20:41)
[2018-03-21] MEDS: SEROQUEL PO SCH (20:41)
[2018-03-22] MEDS: LASIX TAB PO SCH (06:24)
[2018-03-22] MEDS ORDERED: VANCOMYCIN 1 GM in SODIUM CHLORIDE 250 ML IV SCH (09:00)
[2018-03-22] MEDS: LIPITOR PO SCH (09:57)
[2018-03-22] MEDS: KEPPRA PO SCH ×2 (09:57→20:37)
[2018-03-22] MEDS: JANUVIA PO SCH (09:57)
[2018-03-22] MEDS: NORVASC PO SCH (09:57)
[2018-03-22] MEDS: ROCEPHIN 1 GM in SODIUM CHLORIDE 50 ML IV SCH (09:57)
[2018-03-22] MEDS: LOPRESSOR PO SCH (09:57)
[2018-03-22] MEDS: RANEXA PO SCH (09:57)
[2018-03-22] MEDS: LOVENOX SUBCUT SCH (09:58)
[2018-03-22] MEDS: ULTRAM PO SCH (09:59)
[2018-03-22] MEDS ORDERED: K-DUR PO STA ×2 (11:59→17:41)
[2018-03-22] MEDS: HUMULIN R SUBCUT PRN ×2 (12:52→20:43)
[2018-03-22] MEDS: K-DUR PO SCH (17:25)
[2018-03-22] MEDS ORDERED: MICRO-K CAP ONE (18:01)
--- NOTE | 2018-03-22 18:47 | DI ---
EXAM: Chest two views HISTORY: Follow up pneumonia COMPARISON: 03/19/2018 TECHNIQUE: Two views of the chest were performed FINDINGS: Heart is enlarged, unchanged. Mediastinal contour unchanged. Nodular density right mid l ateral lung. No visible pneumothorax. Bibasilar infiltrates with small left pleural effusion. Diff use bronchial wall thickening. IMPRESSION: 1. Redemonstration of a nodular density right mid lateral lung. Recommend further evaluation with C T chest. 2. Bibasilar infiltrates likely represent pneumonia. Probable small left pleural effusion. 3. Diffuse bronchial wall thickening. 4. Mild cardiomegaly.
[2018-03-22] MEDS: VANCOMYCIN 1 GM in SODIUM CHLORIDE 250 ML IV SCH (20:37)
[2018-03-22] MEDS: REMERON PO SCH (20:37)
[2018-03-22] MEDS: MIRAPEX PO SCH (20:37)
[2018-03-22] MEDS: SEROQUEL PO SCH (20:38)
[2018-03-23] MEDS: LASIX TAB PO SCH (06:22)
--- NOTE | 2018-03-23 08:41 | CT ---
EXAM: CT chest without contrast. HISTORY: Persistently abnormal chest radiograph. COMPARISON: Chest radiograph earlier the same day, 03/19/2018, 01/29/2018, 11/11/2013. TECHNIQUE: Multiple axial images of the chest were obtained without intravenous contrast. Images we re reformatted in the sagittal and coronal planes. FINDINGS: Evaluation for lymphadenopathy is limited by lack of intravenous contrast. Some calcified mediastinal lymph nodes are present. Heart size is enlarged. No significant pericardial fluid iden tified. Atherosclerotic calcifications are present. 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 Small left pleural effusion and trace right pleural effusion are present. Nodular foci of consolidat ion are seen throughout both lungs, which are predominantly peripherally and greater in the left lung . No pneumothorax identified. Limited images of the upper abdomen demonstrate no acute finding. Degenerative changes seen in the s houlders and spine. Patchy sclerosis throughout multiple visualized vertebral bodies, most notably T 7 noted. No acute fracture identified. IMPRESSION: 1. Nodular foci of consolidation in both lungs, greater on the left, which could represent pneumonia . Follow-up CT in 4-6 weeks recommended for reassessment as neoplastic process not excluded. Given lack of prior CT for comparison, chronic organizing pneumonia is an additional consideration. 2. Small left and trace right pleural effusions. 3. Cardiomegaly and atherosclerosis. 4. Nonspecific sclerosis within the vertebral bodies, most notably at T7.
[2018-03-23] MEDS: LOPRESSOR PO SCH (09:45)
[2018-03-23] MEDS: ROCEPHIN 1 GM in SODIUM CHLORIDE 50 ML IV SCH (09:45)
[2018-03-23] MEDS: RANEXA PO SCH (09:46)
[2018-03-23] MEDS: NORVASC PO SCH (09:46)
[2018-03-23] MEDS: KEPPRA PO SCH ×2 (09:46→20:41)
[2018-03-23] MEDS: LIPITOR PO SCH (09:46)
[2018-03-23] MEDS: ULTRAM PO SCH (09:47)
[2018-03-23] MEDS: LOVENOX SUBCUT SCH (09:48)
[2018-03-23] MEDS: K-DUR PO SCH ×2 (09:48→18:03)
[2018-03-23] MEDS: JANUVIA PO SCH (09:49)
--- NOTE | 2018-03-23 14:32 | RS.OTINEVL ---
Subjective - Patient information Date of Evaluation: 03/23/18 Admitted From:: Emergency Dept Usual Living Arrangement: With Others Living Arrangement Comments: Pt was living with her daughter and then she was admitted to the ER. Her daughter is using a rollator walker and takes care of her. Pt uses a rollator walker herself. Pt is independent with personal hygiene. Medical History Comments:: osteoporosis, deg. changes with C1 and C2. High falls risk., Neck pain, Subjective Information/ Patient Comments:: "I am used to doing what I can do for myself." - Level of function Abilities prior to this admission: Patient was just discharged from [facility]. Pt uses a rolling walker. Current Level of Function: Partially Dependent Current Equipment Used at Home: walker Pain Assessment - Pain Pain Location Body Site: Neck Pain Aggravating Factors: ADL's, Changing Position Pain Alleviating Factors: Medication, Position Change, Sitting Interventions - Objective Patient Orientation: Person, Place, Situation Current Interventions: IV's, Oxygen Observation: Pt was CGA for transfers from EOB to toilet. Pt completed independence with sit to stand transfers. Interventions - ROM Right Upper Extremity AROM: WFL's Left Upper Extremity AROM: WFL's - Strength Right Upper Extremity Strength: Mild Weakness Left Upper Extremity Strength: Mild Weakness - Sensation Right Upper Extremity Sensation: Intact/Normal Left Upper Extremity Sensation: Intact/Normal Balance - Sitting Balance Static Sitting Balance: Fair Dynamic Sitting Balance: Fair - Standing Balance Static Standing Balance: Poor Dynamic Standing Balance: Poor - Comments Balance Assessment Comments: Pt uses a rollator to keep her balance. ADL Skills - Self Feeding Self Feeding: Independent - Grooming Grooming: CGA - Dressing Dressing UE: Min Assist Dressing LE: Min Assist - Toilet Management Toileting Management: CGA Functional Mobility - Bed Mobility Rolling R/L: CGA Scooting: CGA Supine to Sit: CGA Sit to Supine: CGA - Transfers Sit to Stand: CGA Stand to Sit: CGA Stand Pivot Transfers: CGA ISABELLE INDEX SCORE: . Additional Treatment Performed - Time with patient Length of Evaluation: 24 Total treatment time: 24 Activities Patient Interests:: Watching Television, Visiting/Socializing Patient Education Patient Education: Education of diagnosis, Home Exercise Program, Education of Plan of Care Teaching Recipient: Patient Teaching Methods: Discussion Assessment Problem List:: Decreased level of function, Requires training/education, Decreased safety/Risk of falls, Weakness, Pain limits previous level of function Rehab Potential: Good Further Therapy Indicated?: Yes Evaluation Complexity: HISTORY: Medium, EXAM OF BODY SYSTEMS: Medium, CLINICAL DECISION MAKING: Medium Short Term Goals - Goals GOAL 1: Pt to complete self care management with CGA. Goal to be met by: 03/27/18 GOAL 2: Pt to increase activity tolerance to 15 minutes. Goal to be met by: 03/27/18 GOAL 3: Pt to increase independence of sink level ADLS to CGA. Goal to be met by: 03/27/18 Snf Goals GOAL 1: Pt to complete self care management with Mod-I. Goal to be met by: 03/31/18 GOAL 2: Pt to increase activity tolerance to 20 minutes. Goal to be met by: 03/31/18 GOAL 3: Pt to increase independence of sink level ADLS to MOD-I. Goal to be met by: 03/31/18 Plan Plan of Care: Therapeutic EX, Neuromuscular Re-Educ, Therapeutic Activity, Self- Care/Home Management Duration of Treatment: 2 Weeks Anticipated Discharge Destination: Home Treatment Diagnosis (ICD 10 Codes): M62.81 Muscle weakness, Z74.01 Need for assistance with personal care. Has the Physician been added for Co-signature?: Yes
[2018-03-23] MEDS: VANCOMYCIN 1 GM in SODIUM CHLORIDE 250 ML IV SCH (20:38)
[2018-03-23] MEDS: HUMULIN R SUBCUT PRN (20:38)
[2018-03-23] MEDS: REMERON PO SCH (20:40)
[2018-03-23] MEDS: SEROQUEL PO SCH (20:41)
[2018-03-23] MEDS: MIRAPEX PO SCH (20:41)
[2018-03-24] MEDS: LASIX TAB PO SCH (05:40)
--- NOTE | 2018-03-24 08:22 | RS.PTINEVL ---
Subjective - Patient information Date of Evaluation: 03/23/18 Date of Arrival on Unit: 03/19/18 Admitted From:: Emergency Dept Diagnosis: pneumonia, recent fall Usual Living Arrangement: With Others Living Arrangement Comments: pt lives with dtr who just recently took her out of [facility] due to multiple falls and concerns about her care. pt has lived with dtr for last several years. Home Environment: House, Stairs (few), Rail Medical History: Hypertension, Diabetes, Arthritis Medical History Comments:: osteoporosis, deg. changes with C1 and C2, Neck pain LATEX ALLERGY?: No Medications: see chart Subjective Information/ Patient Comments:: pt's dtr states that she took her mom out of [facility] due to multiple falls. States pt has c/o neck pain and shld pain after recent fall. - Level of function Prior to this admission, the patient could do the following:: Partially Dependent Ambulation Abilities prior to this admission: pt amb with rollator, and required min assist with ADL's Current Level of Function: Partially Dependent Current Equipment Used at Home: walker Pain Assessement - Location cervical Description: Aching Pain Behavior: Facial Grimacing Effects of Pain: pt unable to rate pain, grimaces with cervical ROM Interventions - Objective Patient Orientation: Person, Place Current Interventions: IV's Range of Motion - ROM Right Upper Extremity AROM: WFL's Left Upper Extremity AROM: WFL's Right Lower Extremity AROM: WFL's Left Lower Extremity AROM: WFL's Comments:: pt with min c/o pain with shld ROM Muscle Strength - Muscle Strength Right Upper Extremity Strength: Mild Weakness (grossly 4-/5) Left Upper Extremity Strength: Mild Weakness (grossly 4-/5) Right Lower Extremity Strength: Mild Weakness (hip flex 4-/5, knee flex/ext 4/5 , ankle DF/PF 4/5) Left Lower Extremity Strength: Mild Weakness (hip flex 4-/5, knee flex/ext 4/5, ankle DF/PF 4/5) Sensation - Sensation Right Upper Extremity Sensation: Intact/Normal Left Upper Extremity Sensation: Intact/Normal Right Lower Extremity Sensation: Intact/Normal Left Lower Extremity Sensation: Intact/Normal Palpation Palpation Findings: Tenderness Comments:: cervical spine to palpation Balance - Sitting Balance and Reactions Static Sitting Balance: Good Dynamic Sitting Balance: Fair Sitting Equilibrium Reactions: Delayed Left, Delayed Right Sitting Protective Reactions: Delayed Left, Delayed Right - Standing Balance and Reactions Static Standing Balance: Fair Dynamic Standing Balance: Poor Standing Equilibrium Reactions: Delayed Left, Delayed Right Standing Protective Reactions: Delayed Left, Delayed Right Functional Mobility - Bed Mobility Rolling R/L: CGA Scooting: CGA Supine to Sit: Min Assist Sit to Supine: CGA - Transfers Sit to Stand: CGA Stand to Sit: CGA - Safety Awareness Safety Awareness: Fair ISABELLE INDEX SCORE: n/a Ambulation - Ambulation Assistive Device Used: Rolling Walker Orthotic/Prosthetic Device: No Distance: 100ft Assistance needed with Ambulation: CGA Gait Deviations: Forward posture, Short stride, Deviates from path Ambulation Comments: pt amb with decreased step length, flexed posture, pt requires assist to guide rwx at times. Factors Affecting Ambulation: Decreased Balance, Weakness, Decreased Safety, Cognitive Status, Limited Endurance Treatment time - Time with patient Length of Evaluation: 24 Total treatment time: 24 Patient Education - Education Patient Education: Activity Modification, Education of Plan of Care Teaching Recipient: Patient Teaching Methods: Discussion Comments: discussion regarding not being up without assist due to fall risk, as well as POC. Assessment - Assessment Problem List:: Decreased level of function, Requires training/education, Decreased safety/Risk of falls, Weakness, Cognitive status limits abilities Rehab Potential: Good Further Therapy Indicated?: Yes Evaluation Complexity: HISTORY: Medium (HTN, DM, freq falls), EXAM OF BODY SYSTEMS: Medium (balance, gait, transfers, strength), CLINICAL PRESENTATION: Medium, CLINICAL DECISION MAKING: Medium Short Term Goals GOAL #1: pt independent with bed mobility Goal to be met by: 03/26/18 GOAL #2: pt transfer sup to/from sit to/from stand CGA to SBa Goal to be met by: 03/26/18 GOAL #3: pt amb with rwx 140ft with CGA with no LOB or deviation from path Goal to be met by: 03/26/18 GOAL #4: Improve BLE strength 4 to 4+/5 Goal to be met by: 03/26/18 Snf Goals GOAL #1: pt transfer sup to/from sit to/from stand SBA Goal to be met by: 03/28/18 GOAL #2: pt amb functional household distance with rwx with SBA Goal to be met by: 03/28/18 GOAL #3: pt with improved dyn stand balance as noted by no LOB with gait. Goal to be met by: 03/28/18 Plan Plan of Care: Therapeutic EX, Therapeutic Activity Other:: gait training Frequency of Treatment: 1-2 X day, as tolerated Duration of Treatment: 5 days Anticipated Discharge Destination: Home Treatment Diagnosis (ICD 10 Codes): R26.81 balance impaired. M62.81 general weakness. R26.2 difficulty walking Has the Physician been added for Co-signature?: Yes
[2018-03-24] MEDS: ROCEPHIN 1 GM in SODIUM CHLORIDE 50 ML IV SCH (08:51)
[2018-03-24] MEDS: JANUVIA PO SCH (08:55)
[2018-03-24] MEDS: LOPRESSOR PO SCH (08:55)
[2018-03-24] MEDS: K-DUR PO SCH ×2 (08:55→17:00)
[2018-03-24] MEDS: RANEXA PO SCH (08:55)
[2018-03-24] MEDS: KEPPRA PO SCH (08:55)
[2018-03-24] MEDS: ULTRAM PO SCH (08:55)
[2018-03-24] MEDS: LOVENOX SUBCUT SCH (08:56)
[2018-03-24] MEDS: LIPITOR PO SCH (08:56)
[2018-03-24] MEDS: NORVASC PO SCH (08:56)
[2018-03-24 10:21] VITALS: BP 148/74; TEMP 97.9
[2018-03-24] MEDS: HUMULIN R SUBCUT PRN (11:39)
--- NOTE | 2018-04-13 12:44 | HP ---
CHIEF COMPLAINT: She is coughing DISCUSSION: This is an 87 year old lady who recently was [facility] and [facility]. Her daughter brought her to the emergency room saying that she has had cough and chest congestion. Outpatient x-ray did reveal somewhat questionable cervical odontoid fracture. She was sent to the emergency department. In the emergency department with subsequent CT of the cervical spine did not reveal any evidence of fracture however chest x-ray did reveal left lower lobe infiltrate and nodular density. Because of her persistent cough, congestion and advance age we did not feel that she was going to be a candidate for outpatient treatment therefore this patient was subsequently admitted to my services for inpatient treatment of the pneumonia. PAST MEDICAL HISTORY: MEDICATIONS: Norvasc Keppra Januvia Atorvastatin Lopressor Remeron Nitroglycerin Lasix Singular Mirapex Seroquel Ativan Ranexa Ultram ALLERGIES: Codeine Memantine PAST MEDICAL HISTORY: Dementia Hypertension Seizure disorder Diabetes type 2 Chronic insomnia Restless leg syndrome Anxiety Coronary artery disease SOCIAL HISTORY: She is . No history of alcohol or tobacco use is noted. FAMILY HISTORY: Reviewed and thought not to be pertinent to discussion. REVIEW OF SYSTEMS: Cough productive at times, low grade fever but no chills. No headaches, visual changes, tinnitus, hemoptysis, blood in the stool, urinary symptoms or active seizures. PHYSICAL EXAMINATION: V/S: Temperature 92, pulse 65, respiratory rate 20, blood pressure 125/77 GENERAL: Elderly 87 year old lady who appears her stated age. She is alert however does not answer the questions appropriate. HEENT: Pupils are round. NECK: Supple. CHEST: Scattered bibasilar rales CARDIOVASCULAR: Regular rate and rhythm. ABDOMEN: Soft, nontender. EXTREMITIES: Distal extremities without cyanosis or edema. ASSESSMENT: 1. Pneumonia PLAN: 1. Admission 2. IV antibiotics 3. Follow oximetry and PO intake 4. Her daughter, the POVenancio, would like for her to be placed in [facility] Please see orders. MTDD
== END 2018-03-24 18:20 | DRG 204 ==
LOC: ED 14:27 → MEDSURG B 15:38
PROVIDERS: ADMIT Family Medicine; ATTEND Family Medicine
DX: R91.8 Other nonspecific abnormal finding of lung field (principal); J18.9 Pneumonia, unspecified organism; J90 Pleural effusion, not elsewhere classified; F03.91 Unspecified dementia, unspecified severity, with behavioral disturbance; M54.2 Cervicalgia; F41.9 Anxiety disorder, unspecified; I25.10 Atherosclerotic heart disease of native coronary artery without angina pectoris; N18.3 Chronic kidney disease, stage 3 (moderate); E11.9 Type 2 diabetes mellitus without complications; M19.90 Unspecified osteoarthritis, unspecified site; G47.00 Insomnia, unspecified; W19.XXXA Unspecified fall, initial encounter
CPT/HCPCS: 36415; 80048; 80053; 81001; 82947; 82962; 83605; 84145; 84484; 85025; 87040; 87086; 93005; 93010; 96365; 99284

== ENCOUNTER 2018-04-16 10:31 | Outpatient (CLI) ==
--- NOTE | 2018-04-16 11:13 | DI ---
EXAM: Chest two view, frontal and lateral views. HISTORY: Pneumonia. COMPARISON: 03/23/2018, 03/22/2018. FINDINGS: Heart size is at the upper limits of normal. Atherosclerotic calcifications are present. There is no vascular congestion. Mild peribronchial thickening and interstitial opacities in both abby ngs noted, greatest at the left lung base. There is improved aeration since the prior study with res olution of the pleural effusions. There is no pneumothorax. No acute osseous abnormality identified . IMPRESSION: Improved aeration of both lungs with mild interstitial opacities persisting, greatest at the left bas e.
== END 2018-04-16 10:32 | disposition home or self-care (01) ==
LOC: RAD 10:31
PROVIDERS: ATTEND Family Medicine
DX: J18.9 Pneumonia, unspecified organism (principal)

== ENCOUNTER 2018-05-19 14:46 | Observation (INO) | payer OTHER ==
--- NOTE | 2018-05-19 15:49 | ED.PDOC ---
General ED Provider: Dr. PASHA DICKINSON Chief Complaint: Altered Mental Status Stated Complaint: Granddaughter Nilsa states patient has experienced increased confuson recently, similar symptoms when having a co existing UTI. [facility] [place] wanted to transfer patient to a [facility] in [facility] and did not do any screening lab. Wanted her Grandmother evaluated for medical causes of her changes therefore wanted her brought to [facility] for evaluation and treatment.Prev Physician Dr Clancy and requested he be contacted with test results Time Seen by Physician: 15:25 Mode of Arrival: Walk-In Information Source: Family Exam Limitations: No limitations Primary Care Provider: PASHA CLANCY Nursing and Triage Documentation Reviewed and Agree: Yes Does patient meet sepsis criteria?: No System Inflammatory Response Syndrome: Not Applicable Sepsis Protocol: For patient's 13 years and over: Temp is 96.8 and below OR 101 and greater Pulse >90 BPM Resp >20/minute Acutely Altered Mental Status Are patient's symptoms suggestive of a new infection, such as: -Pneumonia -Skin, Soft Tissue -Endocarditis -UTI -Bone, Joint Infection -Implantable Device -Acute Abdominal Infection -Wound Infection -Meningitis -Blood Stream Catheter Infection -Unknown Neurological Complaint Exam - Altered Mental Status Complaint/Exam Current Mental Status: Confusion Onset: Gradual Symptoms Are: Still present Timing: Constant Episodes Lasting: Minutes Initial Severity: Moderate Current Severity: Moderate Eye Deviation Present: No Character: Reports: Confusion Aggravating: Reports: Medication change Alleviating: Reports: None Associated Signs and Symptoms: Denies: Dizziness, Weakness, Headache, Fever, Illness, Nuchal rigidity, Seizure, Nausea, Vomiting, Recently depressed, Trauma Related History: Reports: Similar episode Cardiac Risk Factors: Reports: Hypertension Related Surgical History: Reports: None Nystagmus Present: No Gag Reflex Present: Yes Meningeal Signs Positive: No Focal Weakness: Present: None Focal Sensory Loss: Present: None Signs of Injury: Present: Normal findings Differential Diagnoses: Hypoxia, Sepsis, CVA Review of Systems - Review Of Systems Constitutional: Reports: Weakness Eyes: Reports: No symptoms Ears, Nose, Mouth, Throat: Reports: No symptoms Respiratory: Reports: No symptoms Cardiac: Reports: No symptoms GI: Reports: No symptoms : Reports: Frequency Musculoskeletal: Reports: No symptoms Skin: Reports: No symptoms Neurological: Reports: Anxiety, Cognitive dysfunction, Headache, Numbness Endocrine: Reports: No symptoms Hematologic/Lymphatic: Reports: No symptoms All Other Systems: Reviewed and Negative Past Medical History - Past Medical History Previously Healthy: No Endocrine: Reports: DM 2 Cardiovascular: Reports: Hypertension Respiratory: Reports: None Hematological: Reports: None Gastrointestinal: Reports: None Genitourinary: Reports: None Neuro/Psych: Reports: None Musculoskeletal: Reports: None Cancer: Reports: None Last Menstrual Period: hysterectomy - Surgical History General Surgical History: Reports: Unknown - Family History Family History: Reports: Unknown - Social History Smoking Status: Never smoker Hx Substance Use: No Alcohol Screening: None Physical Exam - Physical Exam Appearance: Ill-appearing, Thin Ill-appearing: Mild Pain Distress: None Eyes: BRIAN, EOMI, Conjunctiva clear ENT: Ears normal, Nose normal, Oropharynx normal Physician Notification - Case Discussed Physician Notified: Dr Kraft for Dr Clancy Time of Notification: 17:30 (agrees to admit for observation) Critical Care Note - Critical Care Note Total Time (mins): 0 Course - Course Hematology/Chemistry: 05/19/18 16:12 05/19/18 16:08 Orders, Labs, Meds: Lab Review 05/19/18 05/19/18 05/19/18 15:30 16:08 16:12 WBC 9.22 RBC 3.47 L Hgb 10.3 L Hct 31.1 L MCV 89.6 MCH 29.7 MCHC 33.1 RDW Coeff of Fauzia 14.7 Plt Count 233 Immature Gran % (Auto) 0.2 Neut % (Auto) 63.2 Lymph % (Auto) 22.5 [place] % (Auto) 10.4 H Eos % (Auto) 3.0 Baso % (Auto) 0.7 Immature Gran # (Auto) 0.0 Neut # (Auto) 5.8 Lymph # (Auto) 2.1 [place] # (Auto) 1.0 Eos # (Auto) 0.3 Baso # (Auto) 0.1 Sodium 137.7 Potassium 3.94 Chloride 102.6 Carbon Dioxide 27.8 Anion Gap 11.24 BUN 30.9 H Creatinine 1.36 H Estimated GFR (MDRD) 37.00 BUN/Creatinine Ratio 22.72 Glucose 138.8 H Lactic Acid Calcium 9.83 Magnesium Total Bilirubin 0.44 AST 29.5 ALT 12.3 Alkaline Phosphatase 63.0 Total Protein 7.73 Albumin 4.34 Globulin 3.39 Albumin/Globulin Ratio 1.28 Procalcitonin Urine Color Yellow Urine Clarity Cloudy Urine pH 6.0 Ur Specific Mayer 1.015 Urine Protein Negative Urine Glucose (UA) Negative Urine Ketones Negative Urine Blood Negative Urine Nitrite Negative Urine Bilirubin Negative Urine Urobilinogen 0.2 Ur Leukocyte Esterase 1+ Urine Microscopic WBC 20-30 Ur Squamous Epith Cells 20-30 Urine Bacteria 2+ Influ A Molecular Assay Influ B Molecular Assay 05/19/18 05/19/18 05/19/18 16:12 16:12 16:12 WBC RBC Hgb Hct MCV MCH MCHC RDW Coeff of Fauzia Plt Count Immature Gran % (Auto) Neut % (Auto) Lymph % (Auto) [place] % (Auto) Eos % (Auto) Baso % (Auto) Immature Gran # (Auto) Neut # (Auto) Lymph # (Auto) [place] # (Auto) Eos # (Auto) Baso # (Auto) Sodium Potassium Chloride Carbon Dioxide Anion Gap BUN Creatinine Estimated GFR (MDRD) BUN/Creatinine Ratio Glucose Lactic Acid 0.83 Calcium Magnesium 2.19 Total Bilirubin AST ALT Alkaline Phosphatase Total Protein Albumin Globulin Albumin/Globulin Ratio Procalcitonin < 0.05 Urine Color Urine Clarity Urine pH Ur Specific Mayer Urine Protein Urine Glucose (UA) Urine Ketones Urine Blood Urine Nitrite Urine Bilirubin Urine Urobilinogen Ur Leukocyte Esterase Urine Microscopic WBC Ur Squamous Epith Cells Urine Bacteria Influ A Molecular Assay Influ B Molecular Assay 05/19/18 05/19/18 16:15 17:55 WBC RBC Hgb Hct MCV MCH MCHC RDW Coeff of Fauzia Plt Count Immature Gran % (Auto) Neut % (Auto) Lymph % (Auto) [place] % (Auto) Eos % (Auto) Baso % (Auto) Immature Gran # (Auto) Neut # (Auto) Lymph # (Auto) [place] # (Auto) Eos # (Auto) Baso # (Auto) Sodium Potassium Chloride Carbon Dioxide Anion Gap BUN Creatinine Estimated GFR (MDRD) BUN/Creatinine Ratio Glucose Lactic Acid Calcium Magnesium Total Bilirubin AST ALT Alkaline Phosphatase Total Protein Albumin Globulin Albumin/Globulin Ratio Procalcitonin Urine Color Yellow Urine Clarity Clear Urine pH 6.5 Ur Specific Mayer 1.015 Urine Protein Negative Urine Glucose (UA) Negative Urine Ketones Negative Urine Blood Trace-intact Urine Nitrite Negative Urine Bilirubin Negative Urine Urobilinogen 0.2 Ur Leukocyte Esterase 1+ Urine Microscopic WBC 2-5 Ur Squamous Epith Cells 0-2 Urine Bacteria Influ A Molecular Assay Negative by naat Influ B Molecular Assay Negative by naat Orders Category Date Time Status ADMIT OBSERVATION [PLACE PATIENT OBSERVATION] .TO ADMISSION 05/19/18 18:58 Active MEDSURG (NON-MONITORED BED) EKG-(ED ONLY) Stat CARDIO 05/19/18 15:51 Completed IV [ED IV/MEDIPORT/POWERPORT] .ONCE EMERGENCY 05/19/18 18:57 Active BLOOD CULTURE (ED ONLY) Stat LAB 05/19/18 16:12 Received CBC W/ AUTO DIFF Stat LAB 05/19/18 16:12 Completed CMP [COMPREHENSIVE METABOLIC PANEL] Stat LAB 05/19/18 16:08 Completed FLU A & B MOLECULAR [FLU A/B MOLECULAR] Stat LAB 05/19/18 16:15 Completed LACTIC ACID Stat LAB 05/19/18 16:12 Completed MAGNESIUM Stat LAB 05/19/18 16:12 Completed PROCALCITONIN Stat LAB 05/19/18 16:12 Completed UA [URINALYSIS C & S IF INDICATED] Stat LAB 05/19/18 15:30 Completed UA [URINALYSIS C & S IF INDICATED] Stat LAB 05/19/18 17:55 Completed URINE CULTURE Stat LAB 05/19/18 15:30 Received URINE CULTURE Stat LAB 05/19/18 17:55 Received 0.9 % Sodium Chloride [Saline Flush] MEDS 05/19/18 18:57 Ordered 1 syr IVF PRN PRN CHEST, 1V AP ONLY Stat RADS 05/19/18 15:[address] HEAD W/O CONTRAST Stat RADS 05/19/18 15:51 Completed Medications Generic Name Dose Route Start Last Admin Trade Name Freq PRN Reason Stop Dose Admin Sodium Chloride 1 syr 05/19/18 18:57 Saline Flush IVF PRN PRN To flush IV Vital Signs: Temp Pulse Resp BP Pulse Ox 05/19/18 14:47 98.3 F 84 20 164/81 H 95 Departure - Departure Time of Disposition: 18:50 Disposition: PLACED OBSERVATION Discharge Problem: Altered mental status, UTI (urinary tract infection) Condition: Fair Pt referred to PMD for follow-up: Yes IPMP verified?: No Allergies/Adverse Reactions: Allergies codeine Adverse Reaction (Verified 05/19/18 15:11) memantine [From Namenda] Adverse Reaction (Verified 05/19/18 15:11) Home Medications: Ambulatory Orders Amlodipine Besylate [Norvasc] 2.5 mg PO DAILY 10/24/13 Levetiracetam [Keppra] 500 mg PO BID 10/24/13 Sitagliptin Phosphate [Januvia] 50 mg PO DAILY 04/05/15 Atorvastatin Calcium 40 mg PO DAILY 09/27/16 Metoprolol Tartrate [Lopressor] 25 mg PO DAILY 09/27/16 Mirtazapine [Remeron] 30 mg PO BEDTIME 09/27/16 Nitroglycerin [Nitrostat] 0.4 mg SL Q5MIN X 3 DOSES PRN 09/27/16 Furosemide 20 mg PO DAILY 01/29/18 Meclizine HCl 12.5 mg PO TID PRN 01/29/18 Montelukast Sodium [Singulair] 10 mg PO DAILY 01/29/18 Pramipexole Di-HCl [Mirapex] 0.5 mg PO BEDTIME 01/29/18 Quetiapine Fumarate [Seroquel] 25 mg PO BEDTIME 01/29/18 Polyethylene Glycol 3350 [Miralax] 17 gm PO DAILY PRN 03/19/18 Ranolazine [Ranexa] 500 mg PO DAILY 03/19/18 Tramadol HCl [Ultram] 100 mg PO DAILY 03/19/18 Acetaminophen 325 mg PO Q4HR 05/19/18 Benzonatate 100 mg PO Q4HR PRN 05/19/18 Buspirone HCl 7.5 mg PO BID 05/19/18 Cholecalciferol (Vitamin D3) [Vitamin D] 50,000 unit PO WEEKLY 05/19/18 Disposition Discussed With: Patient, Family Additional Information: Discussed situation with Dr Kraft concerning her status at [facility] and family concern/who discussed with Dr Clancy Agreed to accept admission for observation and treat patient for suspected UTI Discussed with family who are pleased with treatment plan and express desire to take pt back to [facility] when patient discharged
--- NOTE | 2018-05-19 16:54 | CT ---
EXAM: CT BRAIN HISTORY: Altered mental status, confusion TECHNIQUE: CT brain without intravenous contrast. 5-mm axial sections with Reformations. COMPARISON: 12/26/2016 FINDINGS: There is generalized atrophy. There is moderately severe periventricular and deep white matter low at tenuation which although nonspecific is suggestive of chronic microvascular ischemic change. These f indings are stable. Brain otherwise is unremarkable without evidence of hemorrhage or large vessel distribution recent is chemic infarction. There is no suggestion of acute hydrocephalus or subdural fluid collection. No m ass or mass effect. Cranium has no acute finding. Mastoid processes are aerated. The visualized paranasal sinuses are clear. IMPRESSION: Significant involutional changes which are stable. No acute process identified.
--- NOTE | 2018-05-19 17:00 | DI ---
EXAM: Chest one view HISTORY: Fell and struck left rib cage COMPARISON: 04/16/2018 TECHNIQUE: Single view of the chest was performed FINDINGS: Lung bases are very poorly evaluated. Bibasilar interstitial opacities appear unchanged. There is no pleural effusion or visible pneumothorax. The heart is normal in size. The mediastinal contour is unchanged, noting atherosclerosis. Questionable lucency left tenth rib may represent a f racture. This region is very poorly evaluated. IMPRESSION: 1. Bibasilar interstitial opacities appear unchanged, nonspecific. 2. Questionable lucency left tenth rib may represent a fracture. This region is very poorly evaluate d. 3. Lung bases are very poorly evaluated.
[2018-05-19] MEDS ORDERED: ROCEPHIN 1 GM in SODIUM CHLORIDE 50 ML IV STA (19:45)
[2018-05-19] MEDS ORDERED: TYLENOL PO PRN (19:52)
[2018-05-19] MEDS ORDERED: NON-FORMULARY MEDICATION (Polyethylene Glycol 3350 [Miralax] 17 GM) PO PRN (19:54)
[2018-05-19] MEDS ORDERED: NITROSTAT SL PRN (19:54)
[2018-05-19] MEDS ORDERED: ANTIVERT PO PRN (19:54)
[2018-05-19] MEDS ORDERED: TESSALON PERLES PO PRN (19:54)
[2018-05-19] MEDS ORDERED: SEROQUEL PO SCH (21:00)
[2018-05-19] MEDS ORDERED: PRAMIPEXOLE DI HCL 0.5 MG PO SCH (21:00)
[2018-05-19] MEDS ORDERED: NON-FORMULARY MEDICATION (Buspirone Hcl [Buspirone Hcl] 7.5 MG) PO SCH (21:00)
[2018-05-19] MEDS ORDERED: KEPPRA PO SCH (21:00)
[2018-05-19] MEDS ORDERED: TYLENOL PO SCH (21:00)
[2018-05-19 21:09] VITALS: BMI 24.3
[2018-05-19] MEDS ORDERED: MIRAPEX ONE (21:46)
[2018-05-19] MEDS ORDERED: ROCEPHIN ONE (21:46)
[2018-05-19] MEDS ORDERED: BUSPAR ONE (21:46)
[2018-05-19] MEDS: SODIUM CHLORIDE 1,000 ML IV SCH (21:54)
[2018-05-19] MEDS: REMERON PO SCH (21:55)
[2018-05-20] MEDS ORDERED: MIRALAX PO PRN ×2 (07:14→08:00)
[2018-05-20] MEDS ORDERED: LASIX TAB PO SCH ×2 (07:30→09:00)
[2018-05-20] MEDS ORDERED: TESSALON PERLES PO PRN (08:00)
[2018-05-20] MEDS ORDERED: ANTIVERT PO PRN (08:00)
[2018-05-20] MEDS ORDERED: NITROSTAT SL PRN (08:00)
[2018-05-20] MEDS ORDERED: RANEXA PO SCH (09:00)
[2018-05-20] MEDS ORDERED: NON-FORMULARY MEDICATION (Sitagliptin Phosphate [Januvia] 50 MG) PO SCH (09:00)
[2018-05-20] MEDS ORDERED: BUSPAR PO SCH (09:00)
[2018-05-20] MEDS ORDERED: LOPRESSOR PO SCH (09:00)
[2018-05-20] MEDS ORDERED: LIPITOR PO SCH (09:00)
[2018-05-20] MEDS: NON-FORMULARY MEDICATION (Atorvastatin Calcium [Atorvastatin Calcium] 40 MG) PO SCH (09:59)
[2018-05-20] MEDS: NORVASC PO SCH (10:00)
[2018-05-20] MEDS: KEPPRA PO SCH ×2 (10:00→20:26)
[2018-05-20] MEDS: JANUVIA PO SCH (10:01)
[2018-05-20] MEDS: LOPRESSOR PO SCH (10:01)
[2018-05-20] MEDS: SINGULAIR PO SCH (10:02)
[2018-05-20] MEDS: ULTRAM PO SCH (10:03)
[2018-05-20] MEDS: SODIUM CHLORIDE 1,000 ML IV SCH (10:03)
[2018-05-20] MEDS: NON-FORMULARY MEDICATION (Buspirone Hcl [Buspirone Hcl] 7.5 MG) PO SCH ×2 (10:03→20:29)
[2018-05-20] MEDS: LASIX TAB PO SCH (11:23)
[2018-05-20] MEDS: RANEXA PO SCH ×2 (11:23→20:26)
[2018-05-20] MEDS: REMERON PO SCH (20:26)
[2018-05-20] MEDS ORDERED: MIRAPEX PO SCH (21:00)
[2018-05-20] MEDS ORDERED: SEROQUEL PO SCH ×2 (21:00)
[2018-05-20] MEDS ORDERED: PRAMIPEXOLE DI HCL 0.5 MG PO SCH (21:00)
[2018-05-21] MEDS: LASIX TAB PO SCH (05:51)
--- NOTE | 2018-05-21 08:04 | SSS ---
CHIEF COMPLAINT: She is has been more confused lately. DISCUSSION: This is a 87 year old lady who is a resident of the prison in [place], [place] who had recently been experiencing increasing confusion. The granddaughter wanted her evaluated for reasons for change in medical status such as infection, etc. She was brought to the emergency department and evaluated by Dr. Ochoa. On urinalysis, there were some white cells seen in the urine and therefor she was admitted to my services under observation pending results of urine culture. PAST MEDICAL HISTORY: MEDICATIONS: Norvasc, Keppra, Januvia, Lipitor, Lopressor, Remeron, Nitroglycerin prn, Lasix 20, Singular, Meclizine, Mirapex, Seroquel every hs, Miralax, Ranexa 500 mg, Ultram, BuSpar. ALLERGIES: Codeine, Memantine. PAST MEDICAL HISTORY: Significant for history of myocardial infarction with coronary artery disease, hypertension, history of seizure disorder, diabetes type II, hyperlipidemia, dementia with agitative features, degenerative joint disease, anxiety. SURGICAL HISTORY: She has a history of hysterectomy. SOCIAL HISTORY: She is a nonsmoker. No alcohol. She is a resident of a prison in [place], [place]. FAMILY HISTORY: Reviewed with no significant familial tendencies. REVIEW OF SYSTEMS: Somewhat difficult due to her underlying dementia, but she denies any chest pain, shortness of breath or cough or hemoptysis, fever, chills , abdominal pain, blood in the stools, urinary symptoms or seizures. PHYSICAL EXAMINATION: VITAL SIGNS: Temperature 93, pulse 84, respirations 20 and blood pressure 160/ 80. GENERAL: Examination reveals a pleasant 87 year old lady who is in no acute distress. HEENT: Pupils are round. NECK: Supple. CHEST: Clear. CARDIOVASCULAR: Regular rate and rhythm. ABDOMEN: Soft, nontender. EXTREMITIES: Distal extremities without cyanosis or edema. CLINICAL COURSE: She was placed under observation and started on empirically on antibiotics by the ER physician. However, her urine culture returned negative this was discontinued. At the time of discharge, Ms. Hurd was pleasant, alert , but confused and afebrile. Our high school social studies tutor contacted the family and they wish for her to be returned back to the prison and further plans will be as prison attending. PREETI
[2018-05-21] MEDS: LOPRESSOR PO SCH (08:54)
[2018-05-21] MEDS: NORVASC PO SCH (08:54)
[2018-05-21] MEDS: KEPPRA PO SCH (08:55)
[2018-05-21] MEDS: RANEXA PO SCH (08:55)
[2018-05-21] MEDS: SINGULAIR PO SCH (08:56)
[2018-05-21] MEDS: NON-FORMULARY MEDICATION (Atorvastatin Calcium [Atorvastatin Calcium] 40 MG) PO SCH (08:57)
[2018-05-21] MEDS: ULTRAM PO SCH (08:58)
[2018-05-21] MEDS: NON-FORMULARY MEDICATION (Buspirone Hcl [Buspirone Hcl] 7.5 MG) PO SCH (08:58)
[2018-05-21] MEDS: JANUVIA PO SCH (08:58)
--- NOTE | 2018-05-21 13:14 | DI ---
EXAM: Four views of the left knee HISTORY: Pain after questionable ground-level fall COMPARISON: None available FINDINGS: No fracture or dislocation is identified. The joint spaces are maintained. No joint effusion is see n. There is degenerative enthesopathy of the distal quadriceps tendon insertion. Atherosclerotic ca lcifications are present. IMPRESSION: No acute osseous abnormality.
--- NOTE | 2018-05-21 13:46 | CT ---
EXAM: CT head without contrast. HISTORY: Headache. Suspected fall. COMPARISON: 05/19/2018. TECHNIQUE: Multiple axial images of the brain were obtained from the skull base through the vertex w ithout intravenous contrast. Multiplanar reformats were provided. FINDINGS: There is no intracranial hemorrhage or extraaxial collection. The craig-white differentiat ion is maintained without evidence for acute large vascular territory infarction. There are areas of periventricular and subcortical white matter low attenuation. The cortical sulci and cerebral ventr icles are symmetrically enlarged. The basal cisterns are well visualized. There is no hydrocephalus , mass effect, or midline shift. The paranasal sinuses and mastoid air cells are clear. The calvari um is intact. Atherosclerotic calcifications are present. Since the prior study, there has been no s ignificant interval change. IMPRESSION: 1. No acute intracranial abnormality. 2. Chronic small vessel ischemic changes and atrophy.
--- NOTE | 2018-05-21 13:46 | CT ---
Exam: CT cervical spine HISTORY: Fall, pain in back of head and neck. Procedures: 2 mm contiguous axial images were obtained through the cervical spine without the use of contrast. Sagittal and coronal reformatted images were also created and reviewed. Findings: The cervical spine is in approximate anatomic alignment. There is multilevel degenerative disc and facet arthropathy including large bridging osteophytes. No acute fracture or listhesis is seen. There is advanced degenerative disease at the anterior C1-2 articulation. Subcentimeter lymph nodes are noted the neck soft tissues, without gloria lymphadenopathy. The thyroid gland appears yolanda ssly within normal limits. There is atherosclerotic disease. Partial retropharyngeal course of the right carotid is noted. Limited visualization of the lung apices demonstrates no pneumothorax. Ther e is no paraspinal fluid collection. Individual disc levels are evaluated as follows At C2-3 there is a mild broad-based disc bulge without central canal stenosis. No significant neural foraminal stenosis. At C3-4 there is a mild broad-based disc bulge which reduces the AP diameter of the spinal canal to 8 mm. Mild neural foraminal stenosis is noted bilaterally. At C4-5 there is a broad-based disc marginal osteophyte complex which reduces the AP diameter of the spinal canal to 8.5 mm. Moderate neural foraminal stenosis is noted on the left with mild neural for aminal stenosis on the right. At C5-6 there is no central spinal canal stenosis. Mild neural foraminal stenosis is noted bilateral ly. At C6-7 there is a minimal disc marginal osteophyte complex without central canal stenosis or signifi cant neural foraminal stenosis. At C7-T1 there is no significant central canal stenosis or significant neural foraminal stenosis. 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 Central canal stenosis to 8 mm at C3-4 and C4-5. Moderate neural foraminal stenosis on the left at C4-5. Mild neural foraminal stenosis on the right at C4-5 and bilaterally at C3-4 and C5-6. Findings were faxed to the emergency department at 1:35 p.m.
--- NOTE | 2018-05-21 13:51 | CT ---
EXAM: CT abdomen pelvis without contrast HISTORY: Pain after questionable ground-level fall COMPARISON: 10/24/2013 TECHNIQUE: CT abdomen pelvis performed without intravenous contrast. Coronal and sagittal reformatt ed images obtained. FINDINGS: Bibasilar fibrosis. No free air. No acute abnormalities of the bones. Degenerative acuna ge in the spine. Heart mildly enlarged. Coronary calcifications. Evaluation organ parenchyma limit ed without contrast. Granulomatous calcification in the liver. Liver otherwise unremarkable. Patie nt status post cholecystectomy. Pancreas unremarkable. Spleen unremarkable. Adrenals unremarkable. No hydronephrosis. Calcifications in the kidneys are likely vascular. Chronic bilateral perinephri c stranding likely senescent change. Bladder unremarkable. Patient status post hysterectomy. Small fat-containing periumbilical hernia. Aorta normal in caliber. Extensive atherosclerosis. No lymph adenopathy or ascites. Small hiatal hernia. Distension with food product. No dilated loops small b owel. Appendix not visualized. Mild colonic diverticulosis. Chronic haziness of the abdominal mese ntery associated small lymph nodes appears unchanged may represent mild chronic mesenteric adenitis o r panniculitis. IMPRESSION: 1. No acute traumatic injury identified in the abdomen or pelvis, noting limitations without contras t. 2. Bibasilar fibrosis. 3. Mild colonic diverticulosis. 4. Mild cardiomegaly. 5. Extensive atherosclerosis. Coronary calcifications. 6. Nonspecific gastric distension. 7. Small hiatal hernia 8. Chronic haziness of the abdominal mesentery associated small lymph nodes appears unchanged may re present mild chronic mesenteric adenitis or panniculitis.
--- NOTE | 2018-05-21 14:26 | DI ---
EXAM: Three-view left elbow COMPARISON: None HISTORY: Trauma and pain FINDINGS: There is no acute fracture or dislocation. Alignment is anatomic. There is a fair amount of degenerative change noted. There is no soft tissue swelling. No unexpected radio-opaque foreign yoav dies. IMPRESSION: No acute osseous abnormality.
[2018-05-21 14:55] VITALS: BP 155/68; TEMP 97.8
[2018-05-26] MEDS ORDERED: DRISDOL PO SCH (09:00)
[2018-05-26] MEDS ORDERED: NON-FORMULARY MEDICATION (Cholecalciferol (Vitamin D3) [Vitamin D3] 50,000 UNIT) PO SCH (09:00)
== END 2018-05-21 17:10 ==
LOC: ED 14:46 → MEDSURG B 19:15
PROVIDERS: ADMIT Family Medicine; ATTEND Family Medicine
DX: R41.0 Disorientation, unspecified (principal); N39.0 Urinary tract infection, site not specified; I10 Essential (primary) hypertension; R53.1 Weakness; F41.9 Anxiety disorder, unspecified
CPT/HCPCS: 36415; 80048; 80053; 81001; 83605; 83735; 84145; 85025; 87040; 87081; 87086; 87502; 93005; 93010; 96361; 96365; 99284

== ENCOUNTER 2018-09-20 11:23 | Emergency (ER) | payer OTHER ==
[2018-09-20 11:33] VITALS: BP 170/100; TEMP 97.1; BMI 24.5
--- NOTE | 2018-09-20 11:52 | CT ---
EXAM: CT of the head without contrast History: Head trauma. Comparison: Head CT 05/21/2018 Technique: Multiplanar CT images through the head were obtained without the administration of IV con trast Findings: The visualized paranasal sinuses and mastoid air cells are clear in general. No acute joycelyn varial abnormalities. Intracranially there are atherosclerotic vascular calcifications. Stable age appropriate atrophy. N o acute intracranial hemorrhage or abnormal extraaxial fluid collections. No change in the periventr icular and subcortical white matter hypodensities which are age appropriate. Impression: No acute intracranial process. No change compared to the prior study.
[2018-09-20] MEDS ORDERED: NORCO 5-325 PO STA (11:55)
--- NOTE | 2018-09-20 12:09 | CT ---
Exam: CT scan of the cervical spine. Date: 09/20/2018. Comparison: 05/21/2018. HISTORY: Fell. TECHNIQUE: Helical scan of the cervical spine was performed. FINDINGS: No prevertebral soft tissue swelling is seen. There is normal alignment to the cervical s pine. There is loss of disc space height with vacuum phenomenon at C4-5. There is ankylosis of the bodies of C5 and C6 with anterior ankylosis extending from C6 through T1. The vertebral body heights are maintained at all levels. The odontoid process is intact. Segmental analysis: C1-2: Degenerative changes present at the atlantoaxial joint. C2-3: There is no significant pressure upon the thecal sac or neural foraminal narrowing. Mild righ t facet arthropathy. C3-4: There is mild diffuse disc bulge which narrows the canal diameter less than 1 cm causing impres marv upon the thecal sac. There is mild bilateral neural foraminal narrowing from facet uncinate pro cess arthropathy. C4-5: There is a broad-based disc bulge which narrows the canal diameter less than 1 cm with an impr ession upon the thecal sac and cord. There is mild to moderate bilateral neural foraminal narrowing from facet and uncinate process arthropathy. C5-6: There is ankylosis of the vertebral bodies. There is no significant impression upon the theca l sac and the canal diameter exceeds 1 cm. There is mild bilateral neural foraminal narrowing from f acet uncinate process arthropathy. C6-7: There is no significant impression upon the thecal sac. There is mild bilateral neural forami nal narrowing from facet and uncinate process arthropathy. C7-T1: There is no significant impression upon the thecal sac. The foramen are patent. Emphysematous changes are present in the lung apices. Impression: No acute findings and no significant change from 05/21/2018. There is bony ankylosis of C5 and C6 with calcification of the anterior longitudinal ligament extending from C6-T1. The findin gs may represent diffuse idiopathic skeletal hyperostosis (DISH). Multilevel degenerative changes are present at the levels a s described above including central canal stenosis at C3-4 and C4-5. If further evaluation is needed then MRI would be suggested.
--- NOTE | 2018-09-20 12:14 | CT ---
Exam: CT scan of the thoracic spine. Date: 09/20/2018. Comparison: None. HISTORY: Fell. TECHNIQUE: Helical scan of the thoracic spine was performed. FINDINGS: There are 12 rib-bearing vertebral bodies and the alignment is normal. Emphysematous robertson es are incidentally seen in the lung parenchyma. Vascular calcifications are also present. There ar e calcifications in the left kidney that may represent nonobstructing renal calculi. There is calcification of the anterior longitudinal ligament extending from T2 through T12. The vert ebral body heights appear maintained at all levels. There is no significant impression upon the thec al sac or cord at any level. No posteriorly displaced rib fractures are observed. Impression: No acute osseous abnormality in the thoracic spine. There is calcification in the anter ior longitudinal ligament extending from T2-T12. This could represent diffuse idiopathic skeletal hy perostosis (DISH) or ankylosing spondylitis. Emphysema. ASVD.
--- NOTE | 2018-09-20 12:16 | ED.PDOC ---
General ED Provider: Dr. PASHA DOBSON-ER Chief Complaint: Fall Stated Complaint: i fell---i am hurting Time Seen by Physician: 11:30 Mode of Arrival: Walk-In Information Source: Patient Exam Limitations: No limitations Primary Care Provider: PASHA DOBSON Nursing and Triage Documentation Reviewed and Agree: Yes Does patient meet sepsis criteria?: No System Inflammatory Response Syndrome: Not Applicable Sepsis Protocol: For patient's 13 years and over: Temp is 96.8 and below OR 101 and greater Pulse >90 BPM Resp >20/minute Acutely Altered Mental Status Are patient's symptoms suggestive of a new infection, such as: -Pneumonia -Skin, Soft Tissue -Endocarditis -UTI -Bone, Joint Infection -Implantable Device -Acute Abdominal Infection -Wound Infection -Meningitis -Blood Stream Catheter Infection -Unknown Trauma/Injury Complaint Exam - Trauma Complaint/Exam Location of Pain or Injury: Reports: Neck, Back Mechanism of Injury: Reports: Fall Symptoms Are: Still present Timing of Treatment: Immediate Initial Severity: Mild Current Severity: Mild Character: Reports: Dull, Aching Aggravating: Reports: Movement, Weight-bearing, Palpation Alleviating: Reports: Rest Associated Signs and Symptoms: Reports: Confusion (due to dementia). Denies: LOC, Memory loss, Lethargy, Vomiting, Bleeding, Bruising, Swelling, Extremity disuse, Painful respiration, Hoarseness, Dysphagia, Hemoptysis, Significant blood loss Compartment Syndrome Risk Factors: Present: Pain Trauma Findings: Present: Neck tenderness Skin Findings: Present: Normal findings Differential Diagnoses: Contusions, Fracture, Sprain, Strain Review of Systems - Review Of Systems Constitutional: Reports: No symptoms Eyes: Reports: No symptoms Ears, Nose, Mouth, Throat: Reports: No symptoms Respiratory: Reports: No symptoms Cardiac: Reports: No symptoms GI: Reports: No symptoms : Reports: No symptoms Musculoskeletal: Reports: Back pain, Muscle pain Skin: Reports: No symptoms Neurological: Reports: No symptoms Endocrine: Reports: No symptoms Hematologic/Lymphatic: Reports: No symptoms All Other Systems: Reviewed and Negative Past Medical History - Past Medical History Previously Healthy: No Endocrine: Reports: DM 2 Cardiovascular: Reports: Hypertension Respiratory: Reports: None Hematological: Reports: None Gastrointestinal: Reports: None Genitourinary: Reports: None Neuro/Psych: Reports: None Musculoskeletal: Reports: None Cancer: Reports: None Last Menstrual Period: years ago - Surgical History General Surgical History: Reports: Unknown - Family History Family History: Reports: Unknown - Social History Smoking Status: Former smoker Hx Substance Use: No Alcohol Screening: None - Immunizations Tetanus Shot up to Date: Yes Physical Exam - Physical Exam Appearance: Well-appearing, No pain distress, Well-nourished Pain Distress: Mild Eyes: BRIAN, EOMI, Conjunctiva clear ENT: Ears normal, Nose normal, Oropharynx normal Neck: Supple Respiratory: Airway patent, Breath sounds clear, Breath sounds equal, Respirations nonlabored Cardiovascular: RRR, Pulses normal, No rub, No murmur GI/: Soft, Nontender, No masses, Bowel sounds normal, No Organomegaly Musculoskeletal: Limited ROM Skin: Warm, Dry, Normal color Neurological: Sensation intact, Motor intact, Reflexes intact, Cranial nerves intact, Alert, Oriented Psychiatric: Affect appropriate, Mood appropriate, Anxious Interpretation - Radiology Interpretation Radiology Interpretation By: Radiologist Radiology Results: Negative Exam Interpreted: CT Scan Critical Care Note - Critical Care Note Total Time (mins): 0 Course - Course Orders, Labs, Meds: Orders Category Date Time Status Hydrocodone Bit/Acetaminophen [[place] 5-325] MEDS 09/20/18 11:55 Discontinued 1 tab PO ONCE STA CT CERVICAL SPINE W/O CONTRAST Stat RADS 09/20/18 11:[address] HEAD W/O CONTRAST Stat RADS 09/20/18 11:[address] LUMBAR SPINE W/O CONTRAST Stat RADS 09/20/18 11:[address] PELVIS W/O CONTRAST Stat RADS 09/20/18 11:[address] THORACIC SPINE W/O CONTRAST Stat RADS 09/20/18 11:32 Completed Medications Discontinued Medications Generic Name Dose Route Start Last Admin Trade Name Freq PRN Reason Stop Dose Admin Hydrocodone Bitart/Acetaminophen 1 tab 09/20/18 11:55 09/20/18 12:11 [place] 5-325 PO 09/20/18 11:56 1 tab ONCE STA Administration Vital Signs: Temp Pulse Resp BP Pulse Ox 09/20/18 11:25 97.1 F L 90 20 170/100 H 99 Departure - Departure Time of Disposition: 12:29 Disposition: HOME SELF-CARE Discharge Problem: Contusion Qualifiers: Encounter type: initial encounter Contusion area: intrathoracic structure Contusion of intrathoracic structure detail: unspecified intrathoracic structure Qualified Code(s): S27.9XXA - Injury of unspecified intrathoracic organ, initial encounter Instructions: Contusion in Adults (ED) Condition: Good Pt referred to PMD for follow-up: Yes IPMP verified?: No Additional Instructions: norco 5mg q 6hrs prn pain #10---f/u with me as needed Allergies/Adverse Reactions: Allergies codeine Adverse Reaction (Verified 05/19/18 15:11) memantine [From Namenda] Adverse Reaction (Verified 05/19/18 15:11) Home Medications: Ambulatory Orders Amlodipine Besylate [Norvasc] 2.5 mg PO DAILY 10/24/13 Levetiracetam [Keppra] 500 mg PO BID 10/24/13 Sitagliptin Phosphate [Januvia] 50 mg PO DAILY 04/05/15 Atorvastatin Calcium 40 mg PO BEDTIME 09/27/16 Metoprolol Tartrate [Lopressor] 25 mg PO DAILYWM 09/27/16 Mirtazapine [Remeron] 30 mg PO BEDTIME 09/27/16 Furosemide 20 mg PO DAILY 01/29/18 Meclizine HCl 12.5 mg PO TID PRN 01/29/18 Montelukast Sodium [Singulair] 10 mg PO BEDTIME 01/29/18 Pramipexole Di-HCl [Mirapex] 0.5 mg PO BEDTIME 01/29/18 Quetiapine Fumarate [Seroquel] 25 mg PO BEDTIME 01/29/18 Ranolazine [Ranexa] 500 mg PO BID 03/19/18 Tramadol HCl [Ultram] 50 mg PO DAILY 03/19/18 Lorazepam 0.5 mg PO BID PRN 09/20/18 Disposition Discussed With: Patient, Family
--- NOTE | 2018-09-20 12:20 | CT ---
EXAM: CT lumbar spine without contra HISTORY: Fall COMPARISON: 04/05/2015 TECHNIQUE: CT lumbar spine performed without intravenous contrast. Coronal and sagittal reformatted images obtained. FINDINGS: The vertebral bodies normal in height. No fracture. Multilevel marginal osteophyte forma tion. Multilevel mild intervertebral disc space narrowing with severe intervertebral disc space narr owing L5-S1. Multilevel facet arthrosis that is greatest in the lower spine. 1 mm anterolisthesis o f L3 on L4 and 1 mm anterolisthesis of L4 on L5. Sacroiliac joints intact with mild degenerative kami nge. Small hiatal hernia. Scarring at the lung bases with suggestion of bronchiectasis. Aorta norm al in caliber. Extensive atherosclerosis. Scarring left superior kidney, likely relates to remote i nsult. Kidneys are incompletely imaged. T12-L1: Posterior disc osteophyte complex causing mild bilateral neural foraminal narrowing. L1-L2: No central canal or neural foraminal narrowing. L2-L3: Posterior disc osteophyte complex and facet arthrosis causing mild central canal and mild trevor ateral neural foraminal narrowing. L3-L4: Posterior disc osteophyte complex and facet arthrosis causing moderate central canal and mode rate bilateral neural foraminal narrowing. L4-L5: Posterior disc osteophyte complex and facet arthrosis causing mild to moderate central canal a nd moderate bilateral neural foraminal narrowing. L5-S1: Posterior disc osteophyte complex and facet arthrosis causing moderate bilateral neural eran inal narrowing. IMPRESSION: 1. No fracture. 2. Chronic discogenic degenerative disease and facet arthrosis. Please see segmental analysis, noti ng central canal and neural foraminal narrowing. 3. Extensive atherosclerosis.
--- NOTE | 2018-09-20 12:24 | CT ---
EXAM: CT pelvis without contrast HISTORY: Fall COMPARISON: None TECHNIQUE: CT pelvis performed without intravenous contrast. Coronal and sagittal reformatted image s obtained. FINDINGS: Atherosclerosis. Bladder is moderately distended. Patient status post hysterectomy. Mil d colonic diverticulosis. No fracture or dislocation. Sacroiliac joints intact with mild degenerati ve change. Mild osteoarthritis of the hips with joint space narrowing. Mild subcutaneous scarring l eft thigh region. Degenerative change in the spine. Please refer to separate report CT lumbar spine . IMPRESSION: 1. No fracture. 2. Mild osteoarthritis of the hips. 3. Bladder moderately distended.
== END 2018-09-20 12:33 | disposition home or self-care (01) ==
LOC: ED 11:23
DX: T14.90XA Injury, unspecified, initial encounter (principal); M54.9 Dorsalgia, unspecified; M54.2 Cervicalgia; R41.0 Disorientation, unspecified; F03.90 Unspecified dementia, unspecified severity, without behavioral disturbance, psychotic disturbance, mood disturbance, and anxiety; S27.9XXA Injury of unspecified intrathoracic organ, initial encounter
CPT/HCPCS: 99283